=== PATIENT | male | born 1935 | race Caucasian/White ===

== ENCOUNTER 2016-09-29 10:51 | Inpatient (IN) | payer MEDICARE, MEDICAID ==
[~2016-09-29] VITALS: Ht 175.3 cm; Wt 68.0 kg
[2016-09-29] MEDS ORDERED: Ipratropium 0.02% Inh Soln 2.5ml UD HHN ONE (11:00)
[2016-09-29] MEDS ORDERED: Morphine Sulfate 2mg/ml Inj IVP ONE (11:00)
[2016-09-29] MEDS ORDERED: Solu-MEDROL 125mg Inj IVP ONE (11:00)
[2016-09-29] MEDS: Albuterol ud Inhalation HHN SCH ×3 (11:06→19:30)
[2016-09-29] MEDS ORDERED: Pantoprazole Inj IVP ONE ×2 (11:15→13:30)
[2016-09-29 11:24] VITALS: BP 144/79
--- NOTE | 2016-09-29 11:43 | Diagnostic Imaging Report ---
Indication: Chest pain Technique: XRAY CHEST 1 V Comparison: None Findings: Cardiac silhouette is prominent. There is a left chest pacemaker. There is no consolidation or pleural effusion. Osseous structures demonstrate no acute abnormality. Impression: No acute cardiopulmonary disease. Cardiomegaly and left chest pacemaker.
--- NOTE | 2016-09-29 11:44 | Diagnostic Imaging Report ---
Indication: Vomiting Technique: Supine views of the abdomen Comparison: None Findings: Bowel gas pattern is nonobstructive and nonspecific. Compression deformities are suggested at L1 and L3. There is osteopenia. Impression: Nonobstructive and nonspecific bowel gas pattern. Apparent compression deformities of L1 and L3. Clinical correlation recommended.
[2016-09-29] MEDS ORDERED: Norco 5mg/325mg tab ORAL ONE (12:15)
[2016-09-29] MEDS ORDERED: PredniSONE 20mg tab ORAL ONE (12:15)
[2016-09-29] MEDS ORDERED: Lidocaine 1% MPF 10mg/ml 5ml INJ ONE (13:00)
--- NOTE | 2016-09-29 13:20 | Emergency Room Report ---
History of Present Illness General Chief Complaint: Pain Source: Patient (Jatin Vera M.D.) Present Illness HPI Patient presents with several days of R jaw and throat pain. He has been unable to eat for 6 days. The pain is severe 10/10 constant and worse with he tries to bite or swallow. He has fullness in this throat and neck. He states he was at a hospital recently and had a CT scan. (He thinks it was [facility].) He believes this is cancer. He also has been vomiting. There is no pain in his abdomen or chest. He also has been coughing thick sputum. No chills or fever. form builder picked him up from the streets (BLS). Prior alcohol abuse but denies recent. + smoker. No trauma, headaches, rashes. He denies SI or HI. (Jatin Vera M.D.) Allergies: Coded Allergies: No Known Allergies (Unverified , 09/29/16) Patient History Past Medical History: see triage record Past Surgical History: pacemaker Social History: Reports: alcohol use - prior, smoking, Denies: drug use Social History Narrative born in [place], dealt with furs - on streets now Reviewed Nursing Documentation: PMH: Agreed, PSxH: Agreed (Jatin Vera M.D.) Nursing Documentation-PMH Past Medical History: No History, Except For Hx Cardiac Problems: Yes Hx Hypertension: Yes Hx Pacemaker: Yes Hx COPD: Yes Hx Cancer: Yes (Jatin Vera M.D.) Review of Systems All Other Systems: negative except mentioned in HPI (Jatin Vera M.D.) Physical Exam Vital Signs Date Time Temp Pulse Resp B/P Pulse Ox O2 Delivery O2 Flow Rate FiO2 09/29/16 10:39 97.0 102 18 140/56 100 Room Air Sp02 EP Interpretation: reviewed, normal General Appearance: GCS 15, other - dishevelled, vomiting and with phlegm Head: normocephalic, atraumatic Eyes: bilateral eye PERRL, bilateral eye normal inspection ENT: moist mucus membranes, tonsillar swelling - R Neck: supple, other - fullness and tenderness R angle of jaw with fullness of pharynx Respiratory: wheezing, expiration, inspiration, other - pacemaker Cardiovascular #1: regular rate, rhythm Cardiovascular #2: 2+ carotid (R), 2+ carotid (L) Gastrointestinal: normal inspection, normal bowel sounds, non tender, no mass, non-distended Rectal: heme positive stool - brown Genitourinary: normal inspection Musculoskeletal: other - deformity of R hand Neurologic: alert, oriented x3, grossly normal Psychiatric: other - occasionally argumentative Skin: cyanosis - extemities - no central cyanosis (Jatin Vera M.D.) Procedures Central Line Central Line : Consent: Verbal Central Line Lumen: triple Maximal Sterile Barrier Tech: yes cap, yes mask, yes sterile gown, yes sterile gloves, yes large sterile sheet, yes hand hygiene, yes chlorhexidine prep Central Line Postion: femoral (R) Anesthesia: Lidocaine Central Line Post Position: sutured, good blood return Attempts: One Patient Tolerated: Well Complications: None Progress Blood drawn for lab = 35 cc. EBL before = 4 ml. (Jatin Vera M.D.) Medical Decision Making Diagnostic Impression: Primary Impression: GI bleed Qualified Codes: K92.2 - Gastrointestinal hemorrhage, unspecified Additional Impressions: Pharyngeal mass COPD exacerbation Elevated lactic acid level ER Course Patient presents with right neck pain and vomiting. He claims that there is a mass in his neck. Differential includes neck abscess, cancer, peritonsillar abscess, viral syndrome, gastroenteritis, GI bleed, acute myocardial infarction , COPD exacerbation, pneumonia amongst others. The patient's not been eating for several days and appears ill. Difficulty being able to convince him to get evaluation done here. EKG, chest x-ray, abdominal films and lab were ordered. Lab was delayed because a central line needed to be started by me to draw blood. Stool is brown and guaiac-positive. Labs are significant for elevated white count and elevated lactate. Chest x- ray shows COPD, abdominal films are not significant. H&H are stable. Saline 30 ml/kg bolus was started and cefepime, vancomycin and Flagyl were ordered. The patient also received analgesia. His breathing was much better after breathing treatments and prednisone by mouth. Patient was given Protonix. [facility] was contacted. The patient only had scheduled outpatient appointments however did not have evaluation with CT scan that he had claimed to. A CT scan of his neck was ordered. [facility] was contacted it's an additional steps were taken for possible transfer the patient for ENT. Presented to Dr. Aggarwal. Awaiting CT of neck reading. Signed out to Dr. De. Laboratory Tests Test 09/29/16 13:14 09/29/16 13:50 White Blood Count 14.0 K/UL (4.8-10.8) H Red Blood Count 4.34 M/UL (4.70-6.10) L Hemoglobin 13.7 G/DL (14.2-18.0) L Hematocrit 42.1 % (42.0-52.0) Mean Corpuscular Volume 97 FL (80-99) Mean Corpuscular Hemoglobin 31.5 PG (27.0-31.0) H Mean Corpuscular Hemoglobin Concent 32.5 G/DL (32.0-36.0) Red Cell Distribution Width 12.4 % (11.6-14.8) Platelet Count 57 K/UL (150-450) L Mean Platelet Volume 7.9 FL (6.5-10.1) Neutrophils (%) (Auto) % (45.0-75.0) Lymphocytes (%) (Auto) % (20.0-45.0) Monocytes (%) (Auto) % (1.0-10.0) Eosinophils (%) (Auto) % (0.0-3.0) Basophils (%) (Auto) % (0.0-2.0) Differential Total Cells Counted 100 Neutrophils % (Manual) 37 % (45-75) L Lymphocytes % (Manual) 50 % (20-45) H Monocytes % (Manual) 9 % (1-10) Eosinophils % (Manual) 2 % (0-3) Basophils % (Manual) 2 % (0-2) Band Neutrophils 0 % (0-8) Platelet Estimate Decreased L Platelet Morphology Normal Red Blood Cell Morphology Normal Prothrombin Time 10.0 SEC (9.30-11.50) Prothrombin Time INR 1.0 (0.9-1.1) PTT 22 SEC (23-33) L Sodium Level 136 mEQ/L (135-145) Potassium Level 4.3 mEQ/L (3.4-4.9) Chloride Level 91 mEQ/L (98-107) L Carbon Dioxide Level 12 mEQ/L (20-30) L Anion Gap 33 (5-15) H Blood Urea Nitrogen 27 mg/dL (7-23) H Creatinine 1.1 mg/dL (0.7-1.2) Estimate Glomerular Filtration Rate mL/min (>60) Glucose Level 175 mg/dL (74-106) H Lactic Acid Level 8.70 mmol/L (0.66-2.22) H Calcium Level 8.5 mg/dL (8.6-10.2) L Total Bilirubin 0.3 mg/dL (0.0-1.2) Aspartate Amino Transferase (AST) 37 U/L (5-40) Alanine Aminotransferase (ALT) 25 U/L (3-41) Alkaline Phosphatase 75 U/L (40-129) Total Creatine Kinase 707 U/L (38-174) H Troponin I < 0.30 ng/mL (<=0.30) Pro-B-Type Natriuretic Peptide 1300 pg/mL (0-450) H Total Protein 6.6 g/dL (6.6-8.7) Albumin 4.0 g/dL (3.5-5.2) Globulin 2.6 g/dL Albumin/Globulin Ratio 1.5 (1.0-2.7) Urine Color Pale yellow Urine Appearance Clear Urine pH 5 (4.5-8.0) Urine Specific [place] 1.025 (1.005-1.035) Urine Protein 1+ (NEGATIVE) H Urine Glucose (UA) Negative (NEGATIVE) Urine Ketones 3+ (NEGATIVE) H Urine Occult Blood 2+ (NEGATIVE) H Urine Nitrite Negative (NEGATIVE) Urine Bilirubin Negative (NEGATIVE) Urine Urobilinogen Normal MG/DL (0.0-1.0) Urine Leukocyte Esterase Negative (NEGATIVE) Urine RBC 2-4 /HPF (0 - 0) H Urine WBC 0-2 /HPF (0 - 0) Urine Squamous Epithelial Cells Occasional /LPF Urine Bacteria Occasional /HPF (NONE) Urine Hyaline Casts 2-4 /LPF (NONE) H Urine Fine Granular Casts 0-2 /LPF (NONE) H Urine Mucus Few /LPF (NONE/OCC) H Urine Opiates Screen Negative (NEGATIVE) Urine Barbiturates Screen Negative (NEGATIVE) Phencyclidine (PCP) Screen Negative (NEGATIVE) Urine Amphetamines Screen Negative (NEGATIVE) Urine Benzodiazepines Screen Negative (NEGATIVE) Urine Cocaine Screen Negative (NEGATIVE) Urine Marijuana (THC) Screen Negative (NEGATIVE) (Jatin Vera M.D.) ER Course CT neck does NOT show abscess or other acute pathology Patient stable for admission to floor. (COLLEEN DE M.D.) EKG Diagnostic Results Rate: normal Rhythm: NSR ST Segments: no acute changes - LBBB (Jatin Vera M.D.) Rhythm Strip Diag. Results EP Interpretation: yes Rhythm: NSR, no PVC's, no ectopy (Jatin Vera M.D.) Chest X-Ray Diagnostic Results EP Interpretation: Yes Findings: no acute cardiopulmonary disease Number of Views: 1 (Jatin Vera M.D.) Other X-Ray Diagnostic Results Other X-Ray Diagnostic Results : X-Ray Ordered: abd EP Interpretation: Yes Findings: other - NSBGP, no masses, no SBO Number of Views: 2 (Jatin Vera M.D.) CT/MRI/US Diagnostic Results CT/MRI/US Diagnostic Results : Imaging Test Ordered: neck with contrast Impression pending (Jatin Vera M.D.) Last Vital Signs Date Time Temp Pulse Resp B/P Pulse Ox O2 Delivery O2 Flow Rate FiO2 09/30/16 10:02 64 20 Room Air 09/30/16 10:02 98 2.0 28 09/30/16 08:00 97.3 122/69 Status: improved (Jatin Vera M.D.) Disposition: ADMITTED INPATIENT Condition: Serious Referrals: NOT CHOSEN IPA/,REFERRING (PCP) Jatin Vera M.D. September 29, 2016 13:20 COLLEEN DE M.D. September 29, 2016 16:47
[2016-09-29] MEDS ORDERED: Morphine Sulfate 4mg/ml Inj IVP ONE ×2 (13:30→14:30)
[2016-09-29 13:41] LABS: MEAN CORPUSCULAR HEMOGLOBIN 31.5 PG (27.0-31.0); MEAN CORPUSCULAR HGB CONC 32.5 G/DL (32.0-36.0); MEAN CORPUSCULAR VOLUME 97 FL (80-99); MEAN PLATELET VOLUME 7.9 FL (6.5-10.1); PLATELET COUNT 57 K/UL (150-450); RED BLOOD COUNT 4.34 M/UL (4.70-6.10); RED CELL DISTRIBUTION WIDTH 12.4 % (11.6-14.8)
[2016-09-29 14:00] LABS: BAND NEUTROPHILS % (MANUAL) 0 % (0-8); BASOPHILS % (MANUAL) 2 % (0-2); EOSINOPHILS % (MANUAL) 2 % (0-3); LYMPHOCYTES % (MANUAL) 50 % (20-45); NEUTROPHILS % (MANUAL) 37 % (45-75); PLATELET ESTIMATE DECREASED; TOTAL CELLS COUNTED 100
[2016-09-29 14:01] LABS: ALANINE AMINOTRANSFERASE 25 U/L (3-41); ALBUMIN/GLOBULIN RATIO 1.5 (1.0-2.7); ANION GAP 33 (5-15); ASPARTATE AMINO TRANSFERASE 37 U/L (5-40); CALCIUM 8.5 mg/dL (8.6-10.2); CARBON DIOXIDE 12 mEQ/L (20-30); CHLORIDE 91 mEQ/L (98-107); CREATININE 1.1 mg/dL (0.7-1.2); HEMOLYSIS 7; PLATELET MORPHOLOGY NORMAL; POTASSIUM 4.3 mEQ/L (3.4-4.9); SODIUM 136 mEQ/L (135-145); TOTAL PROTEIN 6.6 g/dL (6.6-8.7); TROPONIN I < 0.30 ng/mL (<=0.30)
[2016-09-29 14:04] LABS: APPEARANCE,URINE CLEAR; KETONES,URINE 3+ (NEGATIVE); LEUKOCYTE ESTERASE ,URINE NEGATIVE (NEGATIVE); NITRITE,URINE NEGATIVE (NEGATIVE); PH,URINE 5 (4.5-8.0); PROTEIN,URINE 1+ (NEGATIVE); UROBILINOGEN,URINE NORMAL MG/DL (0.0-1.0)
[2016-09-29 14:06] LABS: REFLEX LACTIC ACID YES OR NO YES
[2016-09-29] MEDS ORDERED: Vancomycin 1 GM in D5W 275 ML IVPB ONE (14:15)
[2016-09-29] MEDS ORDERED: Cefepime HCl 1 GM in D5W 55 ML IVPB ONE (14:15)
[2016-09-29] MEDS ORDERED: metroNIDAZOLE 500mg 100 ML IVPB ONE (14:15)
[2016-09-29 14:16] LABS: BACTERIA,URINE OCCASIONAL /HPF; SQUAMOUS EPITHELIAL CELL,UR OCCASIONAL /LPF (NONE/OCC); WBC,URINE 0-2 /HPF (0 - 0)
[2016-09-29] MEDS ORDERED: Cefepime 1gm vial ONE (14:16)
[2016-09-29 14:17] LABS: FINE GRANULAR CASTS,URINE 0-2 /LPF; MUCUS,URINE FEW /LPF (NONE/OCC)
[2016-09-29] MEDS ORDERED: Hydromorphone 0.5mg/0.5ml inj IVP ONE (15:30)
[2016-09-29] MEDS ORDERED: Vancomycin 1gm inj IVPB ONE (16:27)
[2016-09-29] MEDS ORDERED: UNOBMED (17:03)
[2016-09-29 17:08] VITALS: BP 138/76
[2016-09-29 18:00] VITALS: BP 146/62
[2016-09-29] MEDS ORDERED: ASPIRIN-LOW81 MG ORAL (18:35)
[2016-09-29] MEDS ORDERED: Acetaminophen 500mg (ES) tab ORAL PRN (19:00)
[2016-09-29] MEDS ORDERED: Miralax 17gm pkt ORAL PRN (19:00)
[2016-09-29] MEDS ORDERED: Zolpidem 5mg tab ORAL PRN (19:45)
[2016-09-29 20:00] VITALS: BP 150/71
[2016-09-29] MEDS: Ipratropium 0.02% Inh Soln 2.5ml UD HHN PRN (20:30)
[2016-09-29] MEDS: 1/2NS w/KCl 20mEq 1000ml 1,000 ML IV SCH (20:59)
[2016-09-29] MEDS: Norco 5mg/325mg tab ORAL PRN (21:00)
[2016-09-29] MEDS ORDERED: Heparin 5000 units/ml inj SUBQ SCH (21:00)
[2016-09-30] VITALS: BP 128/62
[2016-09-30] MEDS: Norco 5mg/325mg tab ORAL PRN (03:37)
[2016-09-30 04:00] VITALS: BP 128/65
[2016-09-30 05:01] LABS: MEAN CORPUSCULAR HEMOGLOBIN 32.2 PG (27.0-31.0); MEAN CORPUSCULAR HGB CONC 34.2 G/DL (32.0-36.0); MEAN CORPUSCULAR VOLUME 94 FL (80-99); MEAN PLATELET VOLUME 6.6 FL (6.5-10.1); PLATELET COUNT 254 K/UL (150-450); WHITE BLOOD COUNT 20.3 K/UL (4.8-10.8)
[2016-09-30 05:23] LABS: ANION GAP 19 (5-15); CALCIUM 7.2 mg/dL (8.6-10.2); CARBON DIOXIDE 19 mEQ/L (20-30); CHLORIDE 97 mEQ/L (98-107); HEMOLYSIS 9; MAGNESIUM 1.6 mg/dL (1.7-2.5); POTASSIUM 4.8 mEQ/L (3.4-4.9); SODIUM 135 mEQ/L (135-145)
[2016-09-30 08:00] VITALS: BP 122/69
[2016-09-30 08:57] LABS: BAND NEUTROPHILS % (MANUAL) 0 % (0-8); BASOPHILS % (MANUAL) 0 % (0-2); EOSINOPHILS % (MANUAL) 0 % (0-3); LYMPHOCYTES % (MANUAL) 4 % (20-45); NEUTROPHILS % (MANUAL) 86 % (45-75); PLATELET ESTIMATE ADEQUATE; PLATELET MORPHOLOGY NORMAL; TOTAL CELLS COUNTED 100
[2016-09-30] MEDS ORDERED: Tubing IV Secondary IV ONE (10:01)
[2016-09-30] MEDS ORDERED: NS 275ml ONE (10:01)
--- NOTE | 2016-09-30 10:18 | Diagnostic Imaging Report ---
Indication: Neck pain. Technique: Continuous helical imaging of the neck was obtained transaxially from the skull base to the upper thoracic spine during intravenous administration of nonionic contrast. 2-D coronal and sagittal reformatted images were obtained. Total Dose length Product (DLP): [address] Dose Index Volume (CTDIvol): 20 mGy Comparison: None Findings: No adenopathy or abnormal fluid collections are demonstrated within the neck. The supraglottic structures, larynx and subglottic airway appear clear. Glands are unremarkable in appearance. There are scattered arterial plaques.. Minimal left carotid bifurcation calcific plaque noted. The study was not performed as a CTA neck but there is relatively good opacification of the extracranial carotid arteries which show no significant stenosis below the skull base. There is a pacemaker present. The lung apices appear clear. Some degenerative changes of the cervical spine are noted with narrowing of some of the intervertebral discs and hypertrophic spurring. Impression: No acute findings. No abscess identified. Mild atherosclerotic gastric disease Cervical spondylosis The CT scanner at [facility] is accredited by the [employer] and the scans are performed using dose optimization techniques as appropriate to a performed exam including Automatic Exposure control.
[2016-09-30] MEDS: 1/2NS w/KCl 20mEq 1000ml 1,000 ML IV SCH ×2 (10:24→22:57)
--- NOTE | 2016-09-30 11:22 | Infectious Diseases Prog Note ---
Assessment/Plan Assessment/Plan Full consult to follow: A) 1) leukocytosis, pharyngitis, painful swallowing, ? sepsis, ? etiology, ? diarrhea per patient but abdominal exam is benign 2) ct neck is negative or abscess, chest x-ray negative, ua le negative 3) pmh noted P) 1) vancomycin and zosyn 2) check blood cultures, check labs, check f/u chest x-ray 3) throat culture, check c.diff. if has diarrhea 4) consider ENT evaluation 5) may need further imaging 6) thank you Subjective Allergies: Coded Allergies: No Known Allergies (Unverified , 09/29/16) Objective Vital Signs Last 24 Hour Vital Signs Date Time Temp Pulse Resp B/P Pulse Ox O2 Delivery O2 Flow Rate FiO2 09/30/16 10:02 64 20 Room Air 09/30/16 10:02 98 Nasal Cannula 2.0 28 09/30/16 08:00 97.3 20 122/69 97 Nasal Cannula 2.0 09/30/16 08:00 60 09/30/16 04:00 97.4 78 20 128/65 98 Nasal Cannula 2.0 28 09/30/16 04:00 115 09/30/16 00:00 97.0 62 22 128/62 97 Nasal Cannula 2.0 28 09/30/16 00:00 70 09/29/16 20:35 60 22 97 Nasal Cannula 2.0 28 09/29/16 20:34 28 09/29/16 20:33 60 22 Nasal Cannula 2.0 28 09/29/16 20:29 60 22 97 Nasal Cannula 2.0 28 09/29/16 20:00 97.0 62 20 150/71 100 Nasal Cannula 1.0 09/29/16 20:00 60 09/29/16 18:00 97.0 60 16 146/62 100 Nasal Cannula 1.0 09/29/16 17:11 97.0 89 14 138/76 94 Nasal Cannula 1.0 09/29/16 17:08 97.0 89 14 138/76 94 Nasal Cannula 1.0 09/29/16 17:04 97.0 09/29/16 16:29 97.0 09/29/16 12:49 97.0 09/29/16 11:33 61 24 95 Room Air 09/29/16 11:24 97.0 109 27 144/79 90 Simple Mask Height (Feet): 5 Height (Inches): 9.00 Weight (Pounds): 150 Laboratory Tests Test 09/29/16 13:14 09/29/16 13:50 09/30/16 04:30 White Blood Count 14.0 K/UL (4.8-10.8) H 20.3 K/UL (4.8-10.8) H Red Blood Count 4.34 M/UL (4.70-6.10) L 3.90 M/UL (4.70-6.10) L Hemoglobin 13.7 G/DL (14.2-18.0) L 12.5 G/DL (14.2-18.0) L Hematocrit 42.1 % (42.0-52.0) 36.7 % (42.0-52.0) L Mean Corpuscular Volume 97 FL (80-99) 94 FL (80-99) Mean Corpuscular Hemoglobin 31.5 PG (27.0-31.0) H 32.2 PG (27.0-31.0) H Mean Corpuscular Hemoglobin Concent 32.5 G/DL (32.0-36.0) 34.2 G/DL (32.0-36.0) Red Cell Distribution Width 12.4 % (11.6-14.8) 12.0 % (11.6-14.8) Platelet Count 57 K/UL (150-450) L 254 K/UL (150-450) # Mean Platelet Volume 7.9 FL (6.5-10.1) 6.6 FL (6.5-10.1) Neutrophils (%) (Auto) % (45.0-75.0) % (45.0-75.0) Lymphocytes (%) (Auto) % (20.0-45.0) % (20.0-45.0) Monocytes (%) (Auto) % (1.0-10.0) % (1.0-10.0) Eosinophils (%) (Auto) % (0.0-3.0) % (0.0-3.0) Basophils (%) (Auto) % (0.0-2.0) % (0.0-2.0) Differential Total Cells Counted 100 100 Neutrophils % (Manual) 37 % (45-75) L 86 % (45-75) H Lymphocytes % (Manual) 50 % (20-45) H 4 % (20-45) L Monocytes % (Manual) 9 % (1-10) 10 % (1-10) Eosinophils % (Manual) 2 % (0-3) 0 % (0-3) Basophils % (Manual) 2 % (0-2) 0 % (0-2) Band Neutrophils 0 % (0-8) 0 % (0-8) Platelet Estimate Decreased L Adequate Platelet Morphology Normal Normal Red Blood Cell Morphology Normal Normal Prothrombin Time 10.0 SEC (9.30-11.50) Prothromb Time International Ratio 1.0 (0.9-1.1) Activated Partial Thromboplast Time 22 SEC (23-33) L Sodium Level 136 mEQ/L (135-145) 135 mEQ/L (135-145) Potassium Level 4.3 mEQ/L (3.4-4.9) 4.8 mEQ/L (3.4-4.9) Chloride Level 91 mEQ/L (98-107) L 97 mEQ/L (98-107) L Carbon Dioxide Level 12 mEQ/L (20-30) L 19 mEQ/L (20-30) L Anion Gap 33 (5-15) H 19 (5-15) H Blood Urea Nitrogen 27 mg/dL (7-23) H 19 mg/dL (7-23) Creatinine 1.1 mg/dL (0.7-1.2) 1.0 mg/dL (0.7-1.2) Estimat Glomerular Filtration Rate mL/min (>60) mL/min (>60) Glucose Level 175 mg/dL (74-106) H 97 mg/dL (74-106) Lactic Acid Level 8.70 mmol/L (0.66-2.22) H Calcium Level 8.5 mg/dL (8.6-10.2) L 7.2 mg/dL (8.6-10.2) L Total Bilirubin 0.3 mg/dL (0.0-1.2) Aspartate Amino Transf (AST/SGOT) 37 U/L (5-40) Alanine Aminotransferase (ALT/SGPT) 25 U/L (3-41) Alkaline Phosphatase 75 U/L (40-129) Total Creatine Kinase 707 U/L (38-174) H Troponin I < 0.30 ng/mL (<=0.30) Pro-B-Type Natriuretic Peptide 1300 pg/mL (0-450) H Total Protein 6.6 g/dL (6.6-8.7) Albumin 4.0 g/dL (3.5-5.2) Globulin 2.6 g/dL Albumin/Globulin Ratio 1.5 (1.0-2.7) Urine Color Pale yellow Urine Appearance Clear Urine pH 5 (4.5-8.0) Urine Specific [place] 1.025 (1.005-1.035) Urine Protein 1+ (NEGATIVE) H Urine Glucose (UA) Negative (NEGATIVE) Urine Ketones 3+ (NEGATIVE) H Urine Occult Blood 2+ (NEGATIVE) H Urine Nitrite Negative (NEGATIVE) Urine Bilirubin Negative (NEGATIVE) Urine Urobilinogen Normal MG/DL (0.0-1.0) Urine Leukocyte Esterase Negative (NEGATIVE) Urine RBC 2-4 /HPF (0 - 0) H Urine WBC 0-2 /HPF (0 - 0) Urine Squamous Epithelial Cells Occasional /LPF Urine Bacteria Occasional /HPF (NONE) Urine Hyaline Casts 2-4 /LPF (NONE) H Urine Fine Granular Casts 0-2 /LPF (NONE) H Urine Mucus Few /LPF (NONE/OCC) H Urine Opiates Screen Negative (NEGATIVE) Urine Barbiturates Screen Negative (NEGATIVE) Phencyclidine (PCP) Screen Negative (NEGATIVE) Urine Amphetamines Screen Negative (NEGATIVE) Urine Benzodiazepines Screen Negative (NEGATIVE) Urine Cocaine Screen Negative (NEGATIVE) Urine Marijuana (THC) Screen Negative (NEGATIVE) Magnesium Level 1.6 mg/dL (1.7-2.5) L Current Medications Medications (Trade) Dose Ordered Sig/Indira Route PRN Reason Start Time Stop Time Status Last Admin Dose Admin Acetaminophen (Tylenol) 500 mg Q6H PRN ORAL Mild Pain/Temp > 100.5 09/29/16 19:00 10/29/16 18:59 Acetaminophen/ Hydrocodone Bitart ([place] 5/325) 1 tab Q6H PRN ORAL Pain 4 - 10 09/29/16 19:00 10/06/16 18:59 09/30/16 03:37 Dextrose (Dextrose 50%) STAT PRN IV Hypoglycemia 09/29/16 19:00 10/29/16 18:59 Ipratropium [place] (Atrovent) 500 mcg Q6H PRN HHN Shortness of Breath 09/29/16 19:45 10/04/16 19:44 09/29/16 20:30 Levofloxacin (Levaquin) 100 ml @ 100 mls/hr Q24H IVPB 09/29/16 21:00 10/06/16 20:59 09/29/16 21:02 Olanzapine 10 mg 10 mg DAILY ORAL 09/30/16 09:00 10/30/16 08:59 09/30/16 08:11 Ondansetron HCl (Zofran) 4 mg Q6H PRN IVP Nausea & Vomiting 09/29/16 19:00 10/29/16 18:59 09/29/16 20:59 Pantoprazole (Protonix) 40 mg DAILY ORAL 09/30/16 09:00 10/30/16 08:59 09/30/16 08:11 Polyethylene Glycol (Miralax) 17 gm DAILYPRN PRN ORAL Constipation 09/29/16 19:00 10/29/16 18:59 Sodium (0.45%NS w/KCl 20mEq 1000ml) 1,000 ml @ 75 mls/hr [id number] IV 09/29/16 20:30 10/29/16 20:29 09/30/16 10:24 Zolpidem Tartrate 10 mg 10 mg HSPRN PRN ORAL Insomnia 09/29/16 19:45 10/29/16 19:44 LEEROY SOTO September 30, 2016 11:22
[2016-09-30 12:00] VITALS: BP 133/77
[2016-09-30] MEDS: cefTRIAXone 1 GM in D5W 50 ML IVPB SCH (13:08)
[2016-09-30] MEDS: metroNIDAZOLE 500mg 100 ML IVPB SCH ×2 (14:07→22:20)
[2016-09-30 16:00] VITALS: BP 128/71
--- NOTE | 2016-09-30 16:49 | History and Physical Report ---
DATE OF ADMISSION: 09/29/2016 CHIEF COMPLAINT: Right neck pain. HISTORY OF PRESENT ILLNESS: This is an 80-year-old, a very confused male, who came to the emergency department. The patient is hard of hearing and very confused. He does not know his address and does not know anything about his medical history. The patient appeared at [facility]. I was called to admit this patient. PAST MEDICAL HISTORY: 1. Chronic obstructive pulmonary disease. 2. Status post pacemaker. MEDICATIONS: Apparently, the patient is on baby aspirin. Other medications are unknown. ALLERGIES: No known drug allergies. SOCIAL HISTORY: The patient is confused and unable to give any information. FAMILY HISTORY: The patient is confused and unable to give any information. REVIEW OF SYSTEMS: The patient is confused and unable to give any information. PHYSICAL EXAMINATION: GENERAL: This is an elderly male, who is in no acute distress. VITAL SIGNS: Blood pressure 122/62, pulse 70 and regular, respirations 20, and temperature 98 degrees. HEENT: The head is normocephalic and atraumatic. Pupils are equal, round, and reactive to light and accommodation consensually. NECK: Supple. Trachea midline. There was no lymphadenopathy or thyromegaly. LUNGS: Bilateral wheezes and rhonchi. HEART: Regular rate and rhythm without rubs, murmurs, or gallops. ABDOMEN: Soft and nontender. Bowel sounds were active. EXTREMITIES: No clubbing, cyanosis, or edema. NEUROLOGICAL: He is alert, but very confused and hard of hearing. LABORATORY AND ANCILLARY DATA: CBC, white count on admission 14,000, today 20,300 and hemoglobin on admission 13.7, today 12.5. Serum chemistry, BUN on admission 27, today 17 and magnesium today 1.6. ProBNP 1300. Tox screen negative. PTT 22. Urinalysis, 2+ occult blood. Sediment otherwise negative. IMAGING STUDIES: Chest x-ray, cardiomegaly and pacemaker. Abdominal x-ray, compression deformities at L1 and L3. EKG, wide QRS, rightward axis deviation. ASSESSMENT: 1. Throat pain, nonspecific. 2. Leukocytosis, etiology unclear. 3. Chronic obstructive pulmonary disease exacerbation. 4. Status post pacemaker. PLAN: 1. Empiric intravenous antibiotics. 2. Obtain CT scan of the neck, rule out mass. 3. Treatment for chronic obstructive pulmonary disease exacerbation. 4. Obtain database . Chato Aggarwal M.D. DR: HARRIS JOB#: [id number] CC:
--- NOTE | 2016-09-30 18:37 | Cardiology Report ---
APPROVED REPORT EXAM: Two-dimensional and M-mode echocardiogram with Doppler and color Doppler. INDICATION Cardiomyopathy M-Mode DIMENSIONS IVSd0.9 (0.7-1.1cm)Left Atrium (MM)7.4 (1.6-4.0cm) LVDd6.7 (3.5-5.6cm)Aortic Root2.7 (2.0-3.7cm) PWd0.9 (0.7-1.1cm)Aortic Cusp Exc.1.9 (1.5-2.0cm) LVDs4.9 (2.5-4.0cm) PWs1.7 cm Technically difficult study due to poor acoustical windows. Normal left ventricular chamber size, systolic function to extent visualized. Left ventricular ejection fraction estimated to be 55 %. Study quality precludes accurate assessment of regional wall motion. Mild left ventricular hypertrophy by 2-D. Anterior Echo-free space, may be due to pericardial fat or effusion. Severe bi-atrial enlargement. Right ventricular chamber size is within normal limits. Focal aortic valve sclerosis with adequate cusp excursion. Thickened mitral valve leaflets with normal excursion. Mitral annulus and aortic root calcification. Pulmonic valve not well visualized. Normal tricuspid valve structure. IVC dilated at 2.3 cm with slight physiologic collapse suggestive of increased RA pressure. Pacemaker wire present in the right side chambers. A color flow and spectral Doppler study was performed and revealed: Trace aortic regurgitation. Mild to moderate mitral regurgitation. Mitral diastolic velocities suggest reduced left ventricular relaxation c/w mild LV diastolic dysfunction (Grade I). Mild to moderate tricuspid regurgitation. Tricuspid systolic velocities suggests peak right ventricular systolic pressure of 60 mmHg, consistent with severe pulmonary hypertension.
[2016-09-30 20:08] VITALS: BP 141/71
[2016-10-01] MEDS: Ipratropium 0.02% Inh Soln 2.5ml UD HHN PRN
[2016-10-01 00:05] VITALS: BP 155/84
[2016-10-01] MEDS: Norco 5mg/325mg tab ORAL PRN ×2 (00:17→10:27)
[2016-10-01 03:52] VITALS: BP 118/57
[2016-10-01] MEDS: metroNIDAZOLE 500mg 100 ML IVPB SCH ×3 (06:23→22:00)
[2016-10-01 07:48] LABS: BASOPHILS % (AUTO) 0.8 % (0.0-2.0); EOSINOPHILS % (AUTO) 0.8 % (0.0-3.0); LYMPHOCYTES % (AUTO) 14.5 % (20.0-45.0); MEAN CORPUSCULAR HEMOGLOBIN 31.8 PG (27.0-31.0); MEAN CORPUSCULAR HGB CONC 32.9 G/DL (32.0-36.0); MEAN CORPUSCULAR VOLUME 96 FL (80-99); MEAN PLATELET VOLUME 7.1 FL (6.5-10.1); MONOCYTES % (AUTO) 10.2 % (1.0-10.0); NEUTROPHILS % (AUTO) 73.7 % (45.0-75.0); PLATELET COUNT 248 K/UL (150-450); RED BLOOD COUNT 4.14 M/UL (4.70-6.10); RED CELL DISTRIBUTION WIDTH 12.4 % (11.6-14.8); WHITE BLOOD COUNT 12.8 K/UL (4.8-10.8)
[2016-10-01 08:01] VITALS: BP 179/73
[2016-10-01 08:04] LABS: ANION GAP 13 (5-15); CALCIUM 8.2 mg/dL (8.6-10.2); CARBON DIOXIDE 25 mEQ/L (20-30); CHLORIDE 106 mEQ/L (98-107); CREATININE 0.8 mg/dL (0.7-1.2); HEMOLYSIS 4; POTASSIUM 4.1 mEQ/L (3.4-4.9); SODIUM 144 mEQ/L (135-145)
[2016-10-01 08:50] VITALS: BP 136/67
[2016-10-01] MEDS ORDERED: Zolpidem 5mg tab ORAL PRN (09:15)
[2016-10-01] MEDS: Vancomycin 1.5 GM/D5W 325 ML IVPB SCH ×2 (11:11)
--- NOTE | 2016-10-01 11:43 | General Progress Note ---
Assessment/Plan Assessment/Plan COPD Exacerbation - See orders. SW notes reviewed. Needs short-term SNF. Subjective Allergies: Coded Allergies: No Known Allergies (Unverified , 09/29/16) Subjective Still c/o SOB, LBP, Dysuria, sore throat. CV RR Lungs increased EXP Abd SNT BS + E No CCE Objective Last 24 Hour Vital Signs Date Time Temp Pulse Resp B/P Pulse Ox O2 Delivery O2 Flow Rate FiO2 10/01/16 08:50 97.3 61 20 136/67 93 Room Air 10/01/16 08:01 97.0 71 22 179/73 95 Nasal Cannula 2.0 10/01/16 08:00 81 10/01/16 07:40 98 Room Air 21 10/01/16 07:40 Room Air 21 10/01/16 07:40 68 18 Room Air 21 10/01/16 04:00 64 10/01/16 03:52 98.3 60 19 118/57 92 Room Air 10/01/16 00:05 98.5 59 21 155/84 97 Room Air 10/01/16 00:01 64 20 99 Room Air 21 10/01/16 00:00 60 10/01/16 00:00 61 20 98 Room Air 21 09/30/16 20:08 98.7 72 20 141/71 94 Room Air 09/30/16 20:00 60 09/30/16 19:30 70 20 Room Air 21 09/30/16 19:30 98 Room Air 21 09/30/16 19:30 Room Air 21 09/30/16 16:00 97.0 81 20 128/71 95 Nasal Cannula 2.0 09/30/16 16:00 84 09/30/16 12:00 97.7 77 20 133/77 98 Nasal Cannula 2.0 09/30/16 12:00 60 Intake and Output 09/30/16 10/01/16 19:00 07:00 Intake Total 1100 ml 775 ml Output Total 500 ml 940 ml Balance 600 ml -165 ml IV Total 1100 ml 775 ml Output Urine Total 500 ml 940 ml # Voids 5 2 Laboratory Tests 10/01/16 07:20: White Blood Count 12.8H, Red Blood Count 4.14L, Hemoglobin 13.1L, Hematocrit 39.9L, Mean Corpuscular Volume 96, Mean Corpuscular Hemoglobin 31.8H, Mean Corpuscular Hemoglobin Concent 32.9, Red Cell Distribution Width 12.4, Platelet Count 248, Mean Platelet Volume 7.1, Neutrophils (%) (Auto) 73.7, Lymphocytes (% ) (Auto) 14.5L, Monocytes (%) (Auto) 10.2H, Eosinophils (%) (Auto) 0.8, Basophils (%) (Auto) 0.8, Sodium Level 144, Potassium Level 4.1, Chloride Level 106, Carbon Dioxide Level 25, Anion Gap 13, Blood Urea Nitrogen 15, Creatinine 0.8, Estimat Glomerular Filtration Rate , Glucose Level 96, Calcium Level 8.2L Height (Feet): 5 Height (Inches): 9.00 Weight (Pounds): 150 BRENNA STEWART October 01, 2016 11:43
[2016-10-01 12:00] VITALS: BP 146/73
[2016-10-01] MEDS: 1/2NS w/KCl 20mEq 1000ml 1,000 ML IV SCH ×2 (12:30→17:17)
--- NOTE | 2016-10-01 13:35 | Diagnostic Imaging Report ---
Indications: Cough Technique: Portable AP chest Findings: Comparison: Sep 29 2016 Pulmonary inflation has mildly decreased. Cardiac silhouette remains mildly enlarged. Central pulmonary vasculature remains prominent. Peripheral pulmonary vasculature remains within normal limits. No pleural abnormalities detected. Aortic arch calcification and mild elongation, left chest wall pacemaker again noted. IMPRESSION: No evidence of acute cardiopulmonary disease allowing for technical differences described, unchanged Stable chronic changes as described
[2016-10-01] MEDS: cefTRIAXone 1 GM in D5W 50 ML IVPB SCH (13:53)
[2016-10-01 16:05] VITALS: BP 149/73
--- NOTE | 2016-10-01 17:08 | Infectious Diseases Prog Note ---
Assessment/Plan Assessment/Plan Full consult to dictated A) 1) gram + bacteremia - 4/4 bottles, sepsis, leukocytosis, chest x-ray negative, ? pharyngitis, neck pain, ? endocarditis, ? pace-maker infection 2) ct neck negative for abscess 3) pmh noted 4) allergies - negative P) 1) vancomycin, rocephin and flagyl 2) check blood culture identification, labs, f/u bc 3) may need TERESO 4) orders entered and noted 5) may need further imaging Subjective Allergies: Coded Allergies: No Known Allergies (Unverified , 09/29/16) Objective Vital Signs Last 24 Hour Vital Signs Date Time Temp Pulse Resp B/P Pulse Ox O2 Delivery O2 Flow Rate FiO2 10/01/16 16:05 97.0 67 22 149/73 96 Nasal Cannula 2.0 10/01/16 16:00 60 10/01/16 12:00 97.0 64 22 146/73 97 Nasal Cannula 2.0 10/01/16 12:00 63 10/01/16 08:50 97.3 61 20 136/67 93 Room Air 10/01/16 08:01 97.0 71 22 179/73 95 Nasal Cannula 2.0 10/01/16 08:00 81 10/01/16 07:40 98 Room Air 21 10/01/16 07:40 Room Air 21 10/01/16 07:40 68 18 Room Air 21 10/01/16 04:00 64 10/01/16 03:52 98.3 60 19 118/57 92 Room Air 10/01/16 00:05 98.5 59 21 155/84 97 Room Air 10/01/16 00:01 64 20 99 Room Air 21 10/01/16 00:00 60 10/01/16 00:00 61 20 98 Room Air 21 09/30/16 20:08 98.7 72 20 141/71 94 Room Air 09/30/16 20:00 60 09/30/16 19:30 70 20 Room Air 21 09/30/16 19:30 98 Room Air 21 09/30/16 19:30 Room Air 21 Height (Feet): 5 Height (Inches): 9.00 Weight (Pounds): 150 Microbiology Date/Time Source Procedure Growth Status 09/30/16 13:20 Blood Blood Culture - Preliminary Resulted 09/30/16 13:20 Blood Blood Culture - Preliminary Resulted 09/30/16 11:45 Throat Throat Culture - Preliminary NO BETA STREP ISOLATED. Resulted 09/29/16 13:20 Nasal Nares MRSA Culture - Final NO METHICILLIN RESISTANT STAPH AUREUS... Complete 09/29/16 13:20 Rectum VRE Culture - Final NO VANCOMYCIN RESISTANT ENTEROCOCCUS ... Complete Laboratory Tests Test 10/01/16 07:20 White Blood Count 12.8 K/UL (4.8-10.8) H Red Blood Count 4.14 M/UL (4.70-6.10) L Hemoglobin 13.1 G/DL (14.2-18.0) L Hematocrit 39.9 % (42.0-52.0) L Mean Corpuscular Volume 96 FL (80-99) Mean Corpuscular Hemoglobin 31.8 PG (27.0-31.0) H Mean Corpuscular Hemoglobin Concent 32.9 G/DL (32.0-36.0) Red Cell Distribution Width 12.4 % (11.6-14.8) Platelet Count 248 K/UL (150-450) Mean Platelet Volume 7.1 FL (6.5-10.1) Neutrophils (%) (Auto) 73.7 % (45.0-75.0) Lymphocytes (%) (Auto) 14.5 % (20.0-45.0) L Monocytes (%) (Auto) 10.2 % (1.0-10.0) H Eosinophils (%) (Auto) 0.8 % (0.0-3.0) Basophils (%) (Auto) 0.8 % (0.0-2.0) Sodium Level 144 mEQ/L (135-145) Potassium Level 4.1 mEQ/L (3.4-4.9) Chloride Level 106 mEQ/L (98-107) Carbon Dioxide Level 25 mEQ/L (20-30) Anion Gap 13 (5-15) Blood Urea Nitrogen 15 mg/dL (7-23) Creatinine 0.8 mg/dL (0.7-1.2) Estimat Glomerular Filtration Rate mL/min (>60) Glucose Level 96 mg/dL (74-106) Calcium Level 8.2 mg/dL (8.6-10.2) L Current Medications Medications (Trade) Dose Ordered Sig/Indira Route PRN Reason Start Time Stop Time Status Last Admin Dose Admin Acetaminophen (Tylenol) 500 mg Q6H PRN ORAL Mild Pain/Temp > 100.5 09/29/16 19:00 10/29/16 18:59 Acetaminophen/ Hydrocodone Bitart ([place] 5/325) 1 tab Q6H PRN ORAL Pain 4 - 10 09/29/16 19:00 10/06/16 18:59 10/01/16 10:27 Ceftriaxone Sodium/Dextrose (Rocephin/D5W) 50 ml @ 100 mls/hr Q24H IVPB 09/30/16 13:00 10/07/16 12:59 10/01/16 13:53 Dextrose (Dextrose 50%) STAT PRN IV Hypoglycemia 09/29/16 19:00 10/29/16 18:59 Ipratropium [facility] 500 mcg 500 mcg Q6H PRN HHN Shortness of Breath 09/29/16 19:45 10/04/16 19:44 10/01/16 00:00 Metronidazole 100 ml @ 100 mls/hr Q8HR IVPB 09/30/16 14:00 10/07/16 13:59 10/01/16 14:31 Olanzapine (ZyPREXA) 10 mg DAILY ORAL 09/30/16 09:00 10/30/16 08:59 10/01/16 08:27 Ondansetron HCl (Zofran) 4 mg Q6H PRN IVP Nausea & Vomiting 09/29/16 19:00 10/29/16 18:59 09/29/16 20:59 Pantoprazole 40 mg 40 mg DAILY ORAL 09/30/16 09:00 10/30/16 08:59 10/01/16 08:27 Polyethylene Glycol (Miralax) 17 gm DAILYPRN PRN ORAL Constipation 09/29/16 19:00 10/29/16 18:59 10/01/16 12:24 Sodium (0.45%NS w/KCl 20mEq 1000ml) 1,000 ml @ 75 mls/hr [id number] IV 09/29/16 20:30 10/29/16 20:29 09/30/16 22:57 Vancomycin HCl (Vanco rx to dose) 1 ea DAILY PRN MISC Per rx protocol 10/01/16 08:45 6/15/17 08:44 Vancomycin HCl/ Dextrose (Vancomycin/D5W) 325 ml @ 162.5 mls/ hr Q24H IVPB 10/01/16 10:30 10/06/16 10:29 10/01/16 11:11 Zolpidem Tartrate 5 mg 5 mg HSPRN PRN ORAL Insomnia 10/01/16 09:15 10/31/16 09:14 LEEROY SOTO October 01, 2016 17:08
--- NOTE | 2016-10-01 18:13 | Cardiology Progress Note ---
Subjective Subjective [id number] Objective Last 24 Hour Vital Signs Date Time Temp Pulse Resp B/P Pulse Ox O2 Delivery O2 Flow Rate FiO2 10/01/16 16:05 97.0 67 22 149/73 96 Nasal Cannula 2.0 10/01/16 16:00 60 10/01/16 12:00 97.0 64 22 146/73 97 Nasal Cannula 2.0 10/01/16 12:00 63 10/01/16 08:50 97.3 61 20 136/67 93 Room Air 10/01/16 08:01 97.0 71 22 179/73 95 Nasal Cannula 2.0 10/01/16 08:00 81 10/01/16 07:40 98 Room Air 21 10/01/16 07:40 Room Air 21 10/01/16 07:40 68 18 Room Air 21 10/01/16 04:00 64 10/01/16 03:52 98.3 60 19 118/57 92 Room Air 10/01/16 00:05 98.5 59 21 155/84 97 Room Air 10/01/16 00:01 64 20 99 Room Air 21 10/01/16 00:00 60 10/01/16 00:00 61 20 98 Room Air 21 09/30/16 20:08 98.7 72 20 141/71 94 Room Air 09/30/16 20:00 60 09/30/16 19:30 70 20 Room Air 21 09/30/16 19:30 98 Room Air 21 09/30/16 19:30 Room Air 21 Intake and Output 09/30/16 10/01/16 19:00 07:00 Intake Total 1100 ml 775 ml Output Total 500 ml 940 ml Balance 600 ml -165 ml IV Total 1100 ml 775 ml Output Urine Total 500 ml 940 ml # Voids 5 2 Laboratory Tests Test 10/01/16 07:20 White Blood Count 12.8 K/UL (4.8-10.8) H Red Blood Count 4.14 M/UL (4.70-6.10) L Hemoglobin 13.1 G/DL (14.2-18.0) L Hematocrit 39.9 % (42.0-52.0) L Mean Corpuscular Volume 96 FL (80-99) Mean Corpuscular Hemoglobin 31.8 PG (27.0-31.0) H Mean Corpuscular Hemoglobin Concent 32.9 G/DL (32.0-36.0) Red Cell Distribution Width 12.4 % (11.6-14.8) Platelet Count 248 K/UL (150-450) Mean Platelet Volume 7.1 FL (6.5-10.1) Neutrophils (%) (Auto) 73.7 % (45.0-75.0) Lymphocytes (%) (Auto) 14.5 % (20.0-45.0) L Monocytes (%) (Auto) 10.2 % (1.0-10.0) H Eosinophils (%) (Auto) 0.8 % (0.0-3.0) Basophils (%) (Auto) 0.8 % (0.0-2.0) Sodium Level 144 mEQ/L (135-145) Potassium Level 4.1 mEQ/L (3.4-4.9) Chloride Level 106 mEQ/L (98-107) Carbon Dioxide Level 25 mEQ/L (20-30) Anion Gap 13 (5-15) Blood Urea Nitrogen 15 mg/dL (7-23) Creatinine 0.8 mg/dL (0.7-1.2) Estimat Glomerular Filtration Rate mL/min (>60) Glucose Level 96 mg/dL (74-106) Calcium Level 8.2 mg/dL (8.6-10.2) L Microbiology Date/Time Source Procedure Growth Status 09/30/16 13:20 Blood Blood Culture - Preliminary Resulted 09/30/16 13:20 Blood Blood Culture - Preliminary Resulted 09/30/16 11:45 Throat Throat Culture - Preliminary NO BETA STREP ISOLATED. Resulted 09/29/16 13:20 Nasal Nares MRSA Culture - Final NO METHICILLIN RESISTANT STAPH AUREUS... Complete 09/29/16 13:20 Rectum VRE Culture - Final NO VANCOMYCIN RESISTANT ENTEROCOCCUS ... Complete JANET MYERS October 01, 2016 18:13
--- NOTE | 2016-10-01 20:51 | Consultation ---
DATE OF CONSULTATION: 10/01/2016 PULMONARY CONSULTATION CONSULTING PHYSICIAN: Adan Moore M.D. REFERRING PHYSICIAN: Chato Aggarwal M.D. REASON FOR CONSULTATION: Respiratory insufficiency. HISTORY OF PRESENT ILLNESS: This is an 80-year-old male patient who presented to the medical center. The patient was admitted on 09/30/2015. The patient is with confusion and hard of hearing. The patient also with some shortness of breath. The patient does have underlying history of COPD, currently under therapy. I was called to assist and evaluate further and adjust medications and assist with discharge planning. The patient was noted to have leukocytosis and pharyngitis, but fairly negative x-ray eventually subacute in nature. Overall, the patient was noted to have worsening shortness of breath while in the hospital. PAST MEDICAL HISTORY: Notable for COPD, history of pacemaker, now with evidence of leukocytosis, and evidence of acute renal failure. MEDICATIONS: Reviewed. ALLERGIES: Reviewed. SOCIAL HISTORY: The patient is confused, unable to give much in the way of history. He is noted to have baseline dementia. FAMILY HISTORY: Not available. REVIEW OF SYSTEMS: Unobtainable. PHYSICAL EXAMINATION: GENERAL: A well-developed male, in no significant distress, but mildly congested. VITAL SIGNS: Temperature 97, heart rate 64, respiratory rate 23, and blood pressure 147/73, saturations are 97% on 2 liters. HEENT: Fairly negative. Extraocular movements are grossly intact NECK: Supple. No adenopathy. LUNGS: With scattered rhonchi. Moderate breath sounds. CARDIOVASCULAR: S1 and S2. Regular rate and rhythm without murmurs, rubs, or gallops. ABDOMEN: Soft. Nontender. No distention. EXTREMITIES: No cyanosis or clubbing. No significant edema. NEUROLOGICAL: Grossly nonfocal. Weak overall. LABORATORY DATA: Lab data reviewed. White blood cell count 12.8, hemoglobin 13, hematocrit 39, and platelets 248,000. Sodium 144, BUN 15, and creatinine 0.8. Albumin is within normal limits. IMPRESSION: 1. Chronic obstructive pulmonary disease. 2. Shortness of breath. 3. Respiratory insufficiency. 4. Intermittent bronchospasm. 5. Intermittent wheezing. 6. Evidence of dementia with likely acute on chronic encephalopathy. 7. History of pacemaker per history. 8. History of chronic obstructive pulmonary disease per history. 9. Leukocytosis. 10. Pharyngitis. 11. Possible sepsis. RECOMMENDATIONS: 1. Supportive care. 2. meds as outlined. 3. Oxygen therapy as outlined. 4. Hold steroids for now, evaluate if the patient worsens. 5. We will monitor medically and adjust medications and follow imaging as needed. 6. Care discussed and reviewed and then follow clinically. Adan Moore M.D. DR: WILLIS JOB#: [id number] CC: LATOSHA
[2016-10-01] MEDS ORDERED: Tamsulosin 0.4mg cap ORAL SCH (22:00)
[2016-10-02] VITALS: BP 147/77
--- NOTE | 2016-10-02 00:31 | Consultation ---
DATE OF CONSULTATION: 10/01/2016 CARDIOLOGY CONSULTATION: CONSULTING PHYSICIAN: Jocelyn Watters M.D. REFERRING PHYSICIAN: Chato Aggarwal M.D. REASON FOR EVALUATION: Pacemaker and abnormal cardiac rhythm. HISTORY OF PRESENT ILLNESS: The patient presented with right jaw pain and neck pain, but there is no stiffness and there are no lumps, but says that it is extremely painful. He said that he was admitted somewhere else for that pain. He was sure that it is a cancer. It is nonexertional. It is slightly positional. It is not reproducible on palpation, but he has following problems. He had some chills and he has wheezing and cough. PAST MEDICAL HISTORY: Difficult to obtain, but he came agitated. He had pacemaker. He had probably atrial fibrillation. He denies any diabetes or high blood pressure and he probably has alcohol problem, although he denies. PAST SURGICAL HISTORY: Significant only for pacemaker placement. He denies any other surgery. I asked him any procedures done like coronary angiogram and he said that my arteries are plain, but I am not sure. I tried to complying him if he had coronary angiogram, he was not sure. ALLERGIES: His allergies, not reported. MEDICATIONS: He was taking aspirin. HABITS: He said that he smoked heavily, but he quit two months ago and about alcohol, he denied. SOCIAL HISTORY: He lives at home. He is not and does not have any family. REVIEW OF SYSTEMS: No PND. No orthopnea. No syncope. He denies and he is dropping. He does not have any other chest pain. PHYSICAL EXAMINATION: GENERAL: This is an elderly man, who sleeps comfortably. He is arousable. He is cooperative. VITAL SIGNS: Blood pressure is 140/70, heart rate 70, temperature is normal, and oxygen saturation at two liters is 96%. HEENT: PERRLA. EOMI. NECK: Supple. No jugular distention. There is no palpable mass on the right side of his neck. No anything abnormal palpable and his neck is supple. CHEST: His lungs have scattered wheezing. No rales bilaterally with somewhat prolonged expiration. CARDIAC: His heart is regular. PMI is in the sixth intercostal space in the mid axillary line. There is no left ventricular lift. Pacemaker site is intact on the left side. ABDOMEN: Soft and nontender. Good bowel sounds are present. EXTREMITIES: Lower extremities, no edema. He himself appears to be somewhat malnourished and in moderate respiratory distress due to wheezing. NEUROLOGIC: Appears to be unremarkable. LABORATORY AND DIAGNOSTIC DATA: Laboratories are noted and they are remarkable for glucose at 175 and BNP 1600, and troponin normal. He also had elevated white count up to 14 and now it is 12.8. His chest x-ray reveals no presence of infiltrates and he has a dual-chamber pacemaker in the atrium and the ventricle and his lungs are somewhat over expanded, but there is no evidence of infiltrates in his lungs. His EKG shows ventricular pacing with usual rightward axis. His echocardiogram was reviewed and it showed normal ejection fraction. IMPRESSION AND RECOMMENDATION: 1. Chronic obstructive pulmonary disease exacerbation. 2. Neck pain, which is most likely not cardiac, normal troponin, pacemaker in situ and his telemetry rhythm strip shows no clear P-waves and the same is having with EKG. So, we are going to interrogate the pacemaker, looks like he probably is in atrial fibrillation. The question is whether he should be anticoagulated. I discussed with Dr. Aggarwal and he does not appear to be in the heart failure if his troponin is normal. We probably are not going to pursue any additional workup for coronary artery disease at this time because he did not present with clear unstable angina. I will try to get more records, may be [facility] has more information about this patient. Thank you for your consultation. Jocelyn Watters M.D. DR: Marlo JOB#: [id number] CC:
--- NOTE | 2016-10-02 02:51 | Consultation ---
DATE OF CONSULTATION: 10/01/2016 INFECTIOUS DISEASE CONSULTATION ATTENDING PHYSICIAN: Chato Aggarwal M.D. REASON FOR CONSULTATION: Sepsis, gram-positive bacteremia. The patient's chief complaint coming to the hospital is sepsis, GI bleed. HISTORY OF PRESENT ILLNESS: This is an 80-year-old male who comes from [facility], and was noted to have significantly elevated white count and possible sepsis. The patient's workup shows that he has gram-positive blood cultures, 4/4 gram-positive cocci and clusters, identification is pending at this time. Because of the sepsis and gram-positive bacteremia, Infectious Disease consultation requested. The patient is on vancomycin, Rocephin and Flagyl. It is questionable the patient has pharyngitis, however culture for strep is negative and his CT scan of the neck showed no evidence of abscess and no acute findings. The patient is on vancomycin, Rocephin and Flagyl. An 2D echo was done, which did not show any evidence of vegetations, however, it is a limited study based on the report. MAR was noted. Orders were noted. Notes were reviewed. Of note, chest x-ray has been negative and urinalysis also was benign, 0-2 white blood cells, benign for UTI. PAST MEDICAL HISTORY: The patient has a past medical history of COPD, history of pacemaker, history of being confused when he first came in to [place], history of nicotine dependency, history of cardiac disease including pacemaker, history of hypertension, history of cancer looks like also. Please see past medical history in medical order. No history of diabetes. MEDICATIONS: Upon reviewing the MAR, the patient is on the following medications, Zolpidem, vancomycin, metronidazole, Rocephin, Zyprexa, Protonix, Atrovent, MiraLAX, Zofran, IV fluids, he is on hydrocodone, and acetaminophen. Please see medications in medical order. Also medications now reconciled. ALLERGIES: No known drug allergies. SOCIAL HISTORY: Positive for smoking. No alcohol or drug abuse. FAMILY HISTORY: Noncontributory. Negative for exposure of tuberculosis or cancer. REVIEW OF SYSTEMS: Constitutional: The patient has generalized weakness and fatigue. He has some amount of cough. Head And Neck: No obvious head pain. He does have neck pain and possible pharyngitis type symptoms. Cardiac: No chest pain or palpitations. Gastrointestinal: No nausea, vomiting, or diarrhea. Genitourinary: He has no dysuria or frequency. Pulmonary: Mild congestion and cough. Skin: No rash. Neurologic: No seizures. Generalized weakness and fatigue. No fever or chills. Questionable weight loss. He has generalized weakness. No Kinney. He came in with GI bleed. PHYSICAL EXAMINATION: GENERAL: Alert, responsive, in no acute distress, may be some confusion. VITAL SIGNS: Temperature is 97.0 degrees, pulse rate 67, respiratory rate 22, and blood pressure 149/73, saturation is 96% and pulse rate was high as 115 when he first came in. HEAD AND NECK: Oral exam, no thrush. Normocephalic. No facial droop. No neck stiffness. Sinus tenderness. Neck is supple. HEART: Regular. No gallop or murmur. ABDOMEN: Soft. Positive bowel sounds. Nontender. LUNGS: Bilateral rhonchi. No definite rales. SKIN: No rash or dermatitis. MUSCULOSKELETAL: No effusion or contractures. Legs are without cellulitis. PERIPHERAL VASCULAR: No cyanosis or gangrene. RECTAL: Deferred. GENITOURINARY: No Kinney. LINES: Line sites are without phlebitis. NEUROLOGIC: Awake and responsive. LABORATORY AND DIAGNOSTIC DATA: His throat culture is negative. VRE and MRSA screen were negative. Blood cultures 4/4 gram-positive organism cluster, identification is pending, those were the cultures. Creatinine is normal at 0.8. LFTs were noted. White count on admission was 14.0, yesterday 20.3, but he did receive steroids now. Today's white count 12.8, hemoglobin 13.1. Imaging studies, chest x-ray is negative. A 2D echo did not show any evidence of vegetation at least per report. CT scan of the neck showed no abscess. Chest x-ray is negative x2 for pneumonia. ASSESSMENT AND PLAN: 1. The patient has gram-positive bacteremia, 4/4 bottles with sepsis and leukocytosis, questionable etiology, questionable endocarditis, questionable pacemaker infection. CT scan showed no abscess of the neck, questionable pharyngitis. At this time, we will continue on vancomycin, Rocephin and Flagyl. We will check identification, blood cultures recheck surveillance, blood cultures. I would consider TERESO to rule out pacemaker infection and endocarditis. Continue vancomycin, Rocephin, and Flagyl. Follow up blood cultures and labs. Again, consider TERESO especially if the blood cultures are staph aureus. 2. The patient has a history of chronic obstructive pulmonary disease and nicotine dependency. 3. The patient is anemic. 4. Cardiac disease. 5. Pacemaker. 6. Hypertension. 7. Blood pressure control per primary. 8. Chronic obstructive pulmonary disease treatment per primary. 9. History of cancer, I am not clear what type it is. 10. Allergies are negative. 11. Social history is positive for smoking. 12. MAR was noted. 13. Case discussed with RN. 14. Family history is noncontributory. 15. Case discussed with primary consultants. 16. No known allergies. 17. Notes were reviewed. 18. Case discussed with the patient. Cris Mayfield M.D. DR: CORINNE JOB#: [id number] CC:
[2016-10-02 04:00] VITALS: BP 142/80
[2016-10-02 05:23] LABS: EOSINOPHILS % (AUTO) 2.1 % (0.0-3.0); LYMPHOCYTES % (AUTO) 18.2 % (20.0-45.0); MEAN CORPUSCULAR HEMOGLOBIN 32.1 PG (27.0-31.0); MEAN CORPUSCULAR HGB CONC 33.6 G/DL (32.0-36.0); MEAN CORPUSCULAR VOLUME 96 FL (80-99); MEAN PLATELET VOLUME 7.2 FL (6.5-10.1); MONOCYTES % (AUTO) 9.3 % (1.0-10.0); NEUTROPHILS % (AUTO) 69.5 % (45.0-75.0); PLATELET COUNT 220 K/UL (150-450); RED BLOOD COUNT 4.12 M/UL (4.70-6.10); RED CELL DISTRIBUTION WIDTH 12.2 % (11.6-14.8); WHITE BLOOD COUNT 10.8 K/UL (4.8-10.8)
[2016-10-02] MEDS: metroNIDAZOLE 500mg 100 ML IVPB SCH ×3 (05:56→21:56)
[2016-10-02 06:01] LABS: ANION GAP 12 (5-15); CALCIUM 7.9 mg/dL (8.6-10.2); CARBON DIOXIDE 27 mEQ/L (20-30); CHLORIDE 106 mEQ/L (98-107); CREATININE 0.8 mg/dL (0.7-1.2); HEMOLYSIS 6; MAGNESIUM 1.6 mg/dL (1.7-2.5); POTASSIUM 3.6 mEQ/L (3.4-4.9); SODIUM 145 mEQ/L (135-145)
--- NOTE | 2016-10-02 07:29 | Urology Progress Note ---
Assessment/Plan Assessment/Plan urinary retention BPH probable neurogenic bladder microhematuria proteinuria panda indwelling flomax and proscar added voiding trial later consider renal imaging Subjective Allergies: Coded Allergies: No Known Allergies (Unverified , 09/29/16) Subjective feels fair Objective Last 24 Hour Vital Signs Date Time Temp Pulse Resp B/P Pulse Ox O2 Delivery O2 Flow Rate FiO2 10/02/16 04:00 97.9 62 18 142/80 96 10/02/16 04:00 64 10/02/16 00:00 98.1 60 19 147/77 97 10/02/16 00:00 62 10/01/16 20:00 80 10/01/16 19:30 Room Air 21 10/01/16 19:30 98 Room Air 21 10/01/16 19:30 72 20 Room Air 21 10/01/16 16:05 97.0 67 22 149/73 96 Nasal Cannula 2.0 10/01/16 16:00 60 10/01/16 12:00 97.0 64 22 146/73 97 Nasal Cannula 2.0 10/01/16 12:00 63 10/01/16 08:50 97.3 61 20 136/67 93 Room Air 10/01/16 08:01 97.0 71 22 179/73 95 Nasal Cannula 2.0 10/01/16 08:00 81 10/01/16 07:40 98 Room Air 21 10/01/16 07:40 Room Air 21 10/01/16 07:40 68 18 Room Air 21 Intake and Output 10/01/16 10/02/16 19:00 07:00 Intake Total 1390.0 ml 75 ml Output Total 1300 ml 2000 ml Balance 90.0 ml -1925 ml Intake Oral 240 ml IV Total 1150.0 ml 75 ml Output Urine Total 1300 ml 2000 ml # Voids 1 3 Microbiology Date/Time Source Procedure Growth Status 09/30/16 13:20 Blood Blood Culture - Preliminary Staphylococcus Sp Coag Neg Resulted 09/30/16 11:45 Throat Throat Culture - Preliminary NO BETA STREP ISOLATED. Resulted 09/29/16 13:20 Rectum VRE Culture - Final NO VANCOMYCIN RESISTANT ENTEROCOCCUS ... Complete Current Medications Medications (Trade) Dose Ordered Sig/Indira Route PRN Reason Start Time Stop Time Status Last Admin Dose Admin Acetaminophen (Tylenol) 500 mg Q6H PRN ORAL Mild Pain/Temp > 100.5 09/29/16 19:00 10/29/16 18:59 Acetaminophen/ Hydrocodone Bitart ([place] 5/325) 1 tab Q6H PRN ORAL Pain 4 - 10 09/29/16 19:00 10/06/16 18:59 10/01/16 10:27 Ceftriaxone Sodium/Dextrose (Rocephin/D5W) 50 ml @ 100 mls/hr Q24H IVPB 09/30/16 13:00 10/07/16 12:59 10/01/16 13:53 Dextrose (Dextrose 50%) STAT PRN IV Hypoglycemia 09/29/16 19:00 10/29/16 18:59 Finasteride (Proscar) 5 mg DAILY ORAL 10/02/16 09:00 11/01/16 08:59 Ipratropium [place] 500 mcg 500 mcg Q6H PRN HHN Shortness of Breath 09/29/16 19:45 10/04/16 19:44 10/01/16 00:00 Metronidazole 100 ml @ 100 mls/hr Q8HR IVPB 09/30/16 14:00 10/07/16 13:59 10/02/16 05:56 Olanzapine (ZyPREXA) 10 mg DAILY ORAL 09/30/16 09:00 10/30/16 08:59 10/01/16 08:27 Ondansetron HCl (Zofran) 4 mg Q6H PRN IVP Nausea & Vomiting 09/29/16 19:00 10/29/16 18:59 09/29/16 20:59 Pantoprazole 40 mg 40 mg DAILY ORAL 09/30/16 09:00 10/30/16 08:59 10/01/16 08:27 Polyethylene Glycol (Miralax) 17 gm DAILYPRN PRN ORAL Constipation 09/29/16 19:00 10/29/16 18:59 10/01/16 12:24 Sodium (0.45%NS w/KCl 20mEq 1000ml) 1,000 ml @ 75 mls/hr [id number] IV 09/29/16 20:30 10/29/16 20:29 10/01/16 17:17 Tamsulosin HCl (Flomax) 0.4 mg BEDTIME ORAL 10/01/16 22:00 10/31/16 21:59 10/01/16 22:00 Vancomycin HCl (Vanco rx to dose) 1 ea DAILY PRN MISC Per rx protocol 10/01/16 08:45 10/31/16 08:44 Vancomycin HCl/ Dextrose (Vancomycin/D5W) 325 ml @ 162.5 mls/ hr Q24H IVPB 10/01/16 10:30 10/06/16 10:29 10/01/16 11:11 Zolpidem Tartrate 5 mg 5 mg HSPRN PRN ORAL Insomnia 10/01/16 09:15 10/31/16 09:14 Laboratory Tests 10/02/16 04:55: White Blood Count 10.8, Red Blood Count 4.12L, Hemoglobin 13.2L, Hematocrit 39.4L, Mean Corpuscular Volume 96, Mean Corpuscular Hemoglobin 32.1H, Mean Corpuscular Hemoglobin Concent 33.6, Red Cell Distribution Width 12.2, Platelet Count 220, Mean Platelet Volume 7.2, Neutrophils (%) (Auto) 69.5, Lymphocytes (% ) (Auto) 18.2L, Monocytes (%) (Auto) 9.3, Eosinophils (%) (Auto) 2.1, Basophils (%) (Auto) 1.0, Sodium Level 145, Potassium Level 3.6, Chloride Level 106, Carbon Dioxide Level 27, Anion Gap 12, Blood Urea Nitrogen 11, Creatinine 0.8, Estimat Glomerular Filtration Rate , Glucose Level 115H, Lactic Acid Level 1.10 , Calcium Level 7.9L, Magnesium Level 1.6L Height (Feet): 5 Height (Inches): 9.00 Weight (Pounds): 150 Objective exam stable, urine is grossly clear REGINALD ARREAGA October 02, 2016 07:29
[2016-10-02 07:58] VITALS: BP 115/58
--- NOTE | 2016-10-02 09:16 | General Progress Note ---
Assessment/Plan Assessment/Plan COPD Exacerbation - See orders. SW notes reviewed. Needs short-term SNF. Subjective Allergies: Coded Allergies: No Known Allergies (Unverified , 09/29/16) Subjective Still c/o SOB, LBP, Dysuria, sore throat.s/p Traumatic Kinney cath insertion - see notes. Objective Last 24 Hour Vital Signs Date Time Temp Pulse Resp B/P Pulse Ox O2 Delivery O2 Flow Rate FiO2 10/02/16 08:00 60 10/02/16 07:58 97.5 60 20 115/58 95 Nasal Cannula 2.0 10/02/16 04:00 97.9 62 18 142/80 96 10/02/16 04:00 64 10/02/16 00:00 98.1 60 19 147/77 97 10/02/16 00:00 62 10/01/16 20:00 80 10/01/16 19:30 Room Air 21 10/01/16 19:30 98 Room Air 21 10/01/16 19:30 72 20 Room Air 21 10/01/16 16:05 97.0 67 22 149/73 96 Nasal Cannula 2.0 10/01/16 16:00 60 10/01/16 12:00 97.0 64 22 146/73 97 Nasal Cannula 2.0 10/01/16 12:00 63 Intake and Output 10/01/16 10/02/16 19:00 07:00 Intake Total 1390.0 ml 150 ml Output Total 1300 ml 2000 ml Balance 90.0 ml -1850 ml Intake Oral 240 ml IV Total 1150.0 ml 150 ml Output Urine Total 1300 ml 2000 ml # Voids 1 3 Laboratory Tests 10/02/16 04:55: White Blood Count 10.8, Red Blood Count 4.12L, Hemoglobin 13.2L, Hematocrit 39.4L, Mean Corpuscular Volume 96, Mean Corpuscular Hemoglobin 32.1H, Mean Corpuscular Hemoglobin Concent 33.6, Red Cell Distribution Width 12.2, Platelet Count 220, Mean Platelet Volume 7.2, Neutrophils (%) (Auto) 69.5, Lymphocytes (% ) (Auto) 18.2L, Monocytes (%) (Auto) 9.3, Eosinophils (%) (Auto) 2.1, Basophils (%) (Auto) 1.0, Sodium Level 145, Potassium Level 3.6, Chloride Level 106, Carbon Dioxide Level 27, Anion Gap 12, Blood Urea Nitrogen 11, Creatinine 0.8, Estimat Glomerular Filtration Rate , Glucose Level 115H, Lactic Acid Level 1.10 , Calcium Level 7.9L, Magnesium Level 1.6L Height (Feet): 5 Height (Inches): 9.00 Weight (Pounds): 150 Objective CV RR Lungs increased EXP Abd SNT BS + E No CCE Confused. BRENNA STEWART October 02, 2016 09:16
[2016-10-02] MEDS: Vancomycin 1.5 GM/D5W 325 ML IVPB SCH ×2 (09:31)
[2016-10-02] MEDS ORDERED: Heparin 5000 units/ml inj SUBQ SCH (10:00)
[2016-10-02] MEDS: Norco 5mg/325mg tab ORAL PRN ×2 (10:30→22:08)
[2016-10-02 11:54] VITALS: BP 119/59
[2016-10-02] MEDS: cefTRIAXone 1 GM in D5W 50 ML IVPB SCH (12:01)
--- NOTE | 2016-10-02 14:07 | Pulmonology Progress Note ---
Assessment/Plan Assessment/Plan IMPRESSION: 1. Chronic obstructive pulmonary disease. 2. Shortness of breath. 3. Respiratory insufficiency. 4. Intermittent bronchospasm. 5. Intermittent wheezing. 6. Evidence of dementia with likely acute on chronic encephalopathy. 7. History of pacemaker per history. 8. History of chronic obstructive pulmonary disease per history. 9. Leukocytosis. 10. Pharyngitis. 11. Possible sepsis. PLAN care noted iv antibiotics respiratory care oxygen aspiration precautions close follow up and recommendations impression, plan, and exam edited and reviewed in detail care discussed with RN Subjective Allergies: Coded Allergies: No Known Allergies (Unverified , 09/29/16) Subjective overall more comfortable no distress Objective Last 24 Hour Vital Signs Date Time Temp Pulse Resp B/P Pulse Ox O2 Delivery O2 Flow Rate FiO2 10/02/16 12:00 65 10/02/16 11:54 97.0 60 20 119/59 95 Nasal Cannula 2.0 10/02/16 08:10 98 Room Air 21 10/02/16 08:10 Room Air 21 10/02/16 08:10 70 20 Room Air 21 10/02/16 08:00 60 10/02/16 07:58 97.5 60 20 115/58 95 Nasal Cannula 2.0 10/02/16 04:00 97.9 62 18 142/80 96 10/02/16 04:00 64 10/02/16 00:00 98.1 60 19 147/77 97 10/02/16 00:00 62 10/01/16 20:00 80 10/01/16 19:30 Room Air 21 10/01/16 19:30 98 Room Air 21 10/01/16 19:30 72 20 Room Air 21 10/01/16 16:05 97.0 67 22 149/73 96 Nasal Cannula 2.0 10/01/16 16:00 60 Intake and Output 10/01/16 10/02/16 19:00 07:00 Intake Total 1390.0 ml 150 ml Output Total 1300 ml 2000 ml Balance 90.0 ml -1850 ml Intake Oral 240 ml IV Total 1150.0 ml 150 ml Output Urine Total 1300 ml 2000 ml # Voids 1 3 Objective GENERAL: A well-developed male, in no significant distress, no congestion noted HEENT: Fairly negative. Extraocular movements are grossly intact NECK: Supple. No adenopathy. LUNGS: With reduced rhonchi. Moderate breath sounds. CARDIOVASCULAR: S1 and S2. Regular rate and rhythm without murmurs, rubs, or gallops. ABDOMEN: Soft. Nontender. No distention. EXTREMITIES: No cyanosis or clubbing. No significant edema. NEUROLOGICAL: Grossly nonfocal. Weak overall. Microbiology Date/Time Source Procedure Growth Status 09/30/16 13:20 Blood Blood Culture - Preliminary Staphylococcus Sp Coag Neg Resulted 09/30/16 13:20 Blood Blood Culture - Preliminary Staphylococcus Sp Coag Neg Resulted 09/30/16 11:45 Throat Throat Culture - Final NO BETA STREP ISOLATED. Complete Laboratory Tests 10/02/16 04:55: White Blood Count 10.8, Red Blood Count 4.12L, Hemoglobin 13.2L, Hematocrit 39.4L, Mean Corpuscular Volume 96, Mean Corpuscular Hemoglobin 32.1H, Mean Corpuscular Hemoglobin Concent 33.6, Red Cell Distribution Width 12.2, Platelet Count 220, Mean Platelet Volume 7.2, Neutrophils (%) (Auto) 69.5, Lymphocytes (% ) (Auto) 18.2L, Monocytes (%) (Auto) 9.3, Eosinophils (%) (Auto) 2.1, Basophils (%) (Auto) 1.0, Sodium Level 145, Potassium Level 3.6, Chloride Level 106, Carbon Dioxide Level 27, Anion Gap 12, Blood Urea Nitrogen 11, Creatinine 0.8, Estimat Glomerular Filtration Rate , Glucose Level 115H, Lactic Acid Level 1.10 , Calcium Level 7.9L, Magnesium Level 1.6L Current Medications Medications (Trade) Dose Ordered Sig/Indira Route PRN Reason Start Time Stop Time Status Last Admin Dose Admin Acetaminophen (Tylenol) 500 mg Q6H PRN ORAL Mild Pain/Temp > 100.5 09/29/16 19:00 10/29/16 18:59 Acetaminophen/ Hydrocodone Bitart ([place] 5/325) 1 tab Q6H PRN ORAL Pain 4 - 10 09/29/16 19:00 10/06/16 18:59 10/02/16 10:30 Ceftriaxone Sodium/Dextrose (Rocephin/D5W) 50 ml @ 100 mls/hr Q24H IVPB 09/30/16 13:00 10/07/16 12:59 10/02/16 12:01 Dextrose (Dextrose 50%) STAT PRN IV Hypoglycemia 09/29/16 19:00 10/29/16 18:59 Finasteride (Proscar) 5 mg DAILY ORAL 10/02/16 09:00 11/01/16 08:59 10/02/16 08:27 Heparin Sodium (Porcine) (Heparin 5000 units/ml) 5,000 units EVERY 12 HOURS SUBQ 10/02/16 10:00 11/01/16 09:59 10/02/16 09:32 Ipratropium [place] 500 mcg 500 mcg Q6H PRN HHN Shortness of Breath 09/29/16 19:45 10/04/16 19:44 10/01/16 00:00 Metronidazole 100 ml @ 100 mls/hr Q8HR IVPB 09/30/16 14:00 10/07/16 13:59 10/02/16 13:03 Olanzapine (ZyPREXA) 10 mg DAILY ORAL 09/30/16 09:00 10/30/16 08:59 10/02/16 08:27 Ondansetron HCl (Zofran) 4 mg Q6H PRN IVP Nausea & Vomiting 09/29/16 19:00 10/29/16 18:59 09/29/16 20:59 Pantoprazole 40 mg 40 mg DAILY ORAL 09/30/16 09:00 10/30/16 08:59 10/02/16 08:27 Polyethylene Glycol (Miralax) 17 gm DAILYPRN PRN ORAL Constipation 09/29/16 19:00 10/29/16 18:59 10/01/16 12:24 Sodium (0.45%NS w/KCl 20mEq 1000ml) 1,000 ml @ 75 mls/hr [id number] IV 09/29/16 20:30 10/29/16 20:29 10/01/16 17:17 Tamsulosin HCl (Flomax) 0.4 mg BEDTIME ORAL 10/01/16 22:00 10/31/16 21:59 10/01/16 22:00 Vancomycin HCl (Vanco rx to dose) 1 ea DAILY PRN MISC Per rx protocol 10/01/16 08:45 10/31/16 08:44 Vancomycin HCl/ Dextrose (Vancomycin/D5W) 325 ml @ 162.5 mls/ hr Q24H IVPB 10/01/16 10:30 10/06/16 10:29 10/02/16 09:31 Zolpidem Tartrate 5 mg 5 mg HSPRN PRN ORAL Insomnia 10/01/16 09:15 10/31/16 09:14 CLARENCE GUILLERMO October 02, 2016 14:07
--- NOTE | 2016-10-02 14:21 | Consultation ---
DATE OF CONSULTATION: 10/01/2016 CONSULTING PHYSICIAN: Dylan Sanders M.D. REFERRING PHYSICIAN: Chato Aggarwal M.D. REASON FOR CONSULTATION: Evaluation of decreased urinary retention, and history of difficult catheterization. HISTORY OF PRESENT ILLNESS: This is an 80-year-old male, he was admitted to the hospital because of neck pain. He also has confusion. He has a history of BPH. He has difficulty voiding and was noted to have a high residual urine and the nursing staff apparently was having some difficulty placing a Kinney catheter. I did speak with them and eventually we were able to pass a 14-[place] Kinney with 600 mL of residual urine. Urology evaluation is requested. The patient is somewhat confused. Most of the history was obtained from the chart. PAST MEDICAL HISTORY: Significant for history of COPD, history of mild dementia, and BPH. Other history is unknown. PAST SURGICAL HISTORY: He has had pacemaker. Other surgeries are unknown. MEDICATIONS: Current medications here in the hospital, the patient is on Flagyl, Rocephin, Zyprexa, Protonix, Zofran, dextrose, and Tylenol. ALLERGIES: No known drug allergies. SOCIAL HISTORY: Smoking history is unknown. REVIEW OF SYSTEMS: History unable to obtain. PHYSICAL EXAMINATION: GENERAL: This is an elderly male, in no acute distress. VITAL SIGNS: Temperature is 97.0 degrees, blood pressure is 149/73, pulse 67, and respirations 22. HEENT: Normocephalic. NECK: Supple. ABDOMEN: Soft. BACK: No CVA tenderness. GENITOURINARY: Reveals Kinney catheter in place. Urine is yellow. RECTAL: Exam reveals a very firm prostate and large over 60 grams. EXTREMITIES: No clubbing or cyanosis. LABORATORY DATA: His white count is 12.8, hemoglobin 13.1, and platelets are 248,000. BUN is 50 and creatinine 0.8. His admit the UA showed 2-4 RBCs, 1+ protein. DIAGNOSTIC IMAGING STUDIES: There is no renal imaging noted. The patient had a chest x-ray, which was reviewed. IMPRESSION: 1. Urinary retention with history of difficult catheterization. 2. Benign prostatic hypertrophy. 3. Probable neurogenic bladder. 4. Microhematuria. 5. Proteinuria. PLAN AND DISCUSSION: Again as noted above the patient has urinary retention. Kinney has been placed, draining well. At this time, I recommended adding Flomax 0.4 mg nightly and finasteride 5 mg daily. The patient will be monitored with a voiding trial in the next few days once he is more medically stabilized. We will also consider obtaining a renal imaging study and cystoscopy in the future. I will follow the patient. Any other recommendations will be forthcoming. Thank you, Dr. Aggarwal, for asking me to see this patient in consultation. Dylan Sanders M.D. DR: Claudy JOB#: [id number] CC:
[2016-10-02] MEDS: 1/2NS w/KCl 20mEq 1000ml 1,000 ML IV SCH ×2 (15:07→20:46)
[2016-10-02 15:36] VITALS: BP 104/55
[2016-10-02 19:44] VITALS: BP 121/99
[2016-10-02] MEDS: Heparin 5000 units/ml inj SUBQ SCH (20:59)
[2016-10-02] MEDS ORDERED: Zolpidem 5mg tab ORAL PRN (21:00)
[2016-10-02] MEDS ORDERED: Miralax 17gm pkt ORAL PRN (21:00)
[2016-10-02] MEDS ORDERED: Ipratropium 0.02% Inh Soln 2.5ml UD HHN PRN (21:00)
[2016-10-02] MEDS ORDERED: Acetaminophen 500mg (ES) tab ORAL PRN (21:00)
[2016-10-02] MEDS ORDERED: Tamsulosin 0.4mg cap ORAL SCH (21:00)
--- NOTE | 2016-10-02 23:12 | Cardiology Progress Note ---
Assessment/Plan Assessment/Plan pacemaker interrogation is pending will follow Subjective Subjective arousable, denies chest pain Objective Last 24 Hour Vital Signs Date Time Temp Pulse Resp B/P Pulse Ox O2 Delivery O2 Flow Rate FiO2 10/02/16 19:54 98 Room Air 21 10/02/16 19:54 Room Air 21 10/02/16 19:53 73 20 Room Air 21 10/02/16 19:44 98.5 84 20 121/99 93 Nasal Cannula 2.0 10/02/16 15:36 97.3 60 20 104/55 96 Nasal Cannula 2.0 10/02/16 12:00 65 10/02/16 11:54 97.0 60 20 119/59 95 Nasal Cannula 2.0 10/02/16 08:10 98 Room Air 21 10/02/16 08:10 Room Air 21 10/02/16 08:10 70 20 Room Air 21 10/02/16 08:00 60 10/02/16 07:58 97.5 60 20 115/58 95 Nasal Cannula 2.0 10/02/16 04:00 97.9 62 18 142/80 96 10/02/16 04:00 64 10/02/16 00:00 98.1 60 19 147/77 97 10/02/16 00:00 62 General Appearance: lethargic EENT: PERRL/EOMI Neck: no JVD Rhythm: other - paced rhythm Cardiovascular: normal rate Respiratory/Chest: crackles/rales, expiratory wheezing Abdomen: soft Extremities: no swelling Intake and Output 10/01/16 10/02/16 19:00 07:00 Intake Total 1390.0 ml 150 ml Output Total 1300 ml 2000 ml Balance 90.0 ml -1850 ml Intake Oral 240 ml IV Total 1150.0 ml 150 ml Output Urine Total 1300 ml 2000 ml # Voids 1 3 Laboratory Tests Test 10/02/16 04:55 White Blood Count 10.8 K/UL (4.8-10.8) Red Blood Count 4.12 M/UL (4.70-6.10) L Hemoglobin 13.2 G/DL (14.2-18.0) L Hematocrit 39.4 % (42.0-52.0) L Mean Corpuscular Volume 96 FL (80-99) Mean Corpuscular Hemoglobin 32.1 PG (27.0-31.0) H Mean Corpuscular Hemoglobin Concent 33.6 G/DL (32.0-36.0) Red Cell Distribution Width 12.2 % (11.6-14.8) Platelet Count 220 K/UL (150-450) Mean Platelet Volume 7.2 FL (6.5-10.1) Neutrophils (%) (Auto) 69.5 % (45.0-75.0) Lymphocytes (%) (Auto) 18.2 % (20.0-45.0) L Monocytes (%) (Auto) 9.3 % (1.0-10.0) Eosinophils (%) (Auto) 2.1 % (0.0-3.0) Basophils (%) (Auto) 1.0 % (0.0-2.0) Sodium Level 145 mEQ/L (135-145) Potassium Level 3.6 mEQ/L (3.4-4.9) Chloride Level 106 mEQ/L (98-107) Carbon Dioxide Level 27 mEQ/L (20-30) Anion Gap 12 (5-15) Blood Urea Nitrogen 11 mg/dL (7-23) Creatinine 0.8 mg/dL (0.7-1.2) Estimat Glomerular Filtration Rate mL/min (>60) Glucose Level 115 mg/dL (74-106) H Lactic Acid Level 1.10 mmol/L (0.66-2.22) Calcium Level 7.9 mg/dL (8.6-10.2) L Magnesium Level 1.6 mg/dL (1.7-2.5) L Microbiology Date/Time Source Procedure Growth Status 09/30/16 13:20 Blood Blood Culture - Preliminary Staphylococcus Sp Coag Neg Resulted 09/30/16 13:20 Blood Blood Culture - Preliminary Staphylococcus Sp Coag Neg Resulted 09/30/16 11:45 Throat Throat Culture - Final NO BETA STREP ISOLATED. Complete JANET MYERS October 02, 2016 23:11
[2016-10-03] VITALS: BP 133/78
[2016-10-03 04:00] VITALS: BP 141/89
[2016-10-03] MEDS: metroNIDAZOLE 500mg 100 ML IVPB SCH (05:49)
--- NOTE | 2016-10-03 08:05 | Pulmonology Progress Note ---
Assessment/Plan Assessment/Plan IMPRESSION: 1. Chronic obstructive pulmonary disease. 2. Shortness of breath. 3. Respiratory insufficiency. 4. Intermittent bronchospasm. 5. Intermittent wheezing. 6. Evidence of dementia with likely acute on chronic encephalopathy. 7. History of pacemaker per history. 8. History of chronic obstructive pulmonary disease per history. 9. Leukocytosis. 10. Pharyngitis. 11. Possible sepsis. PLAN care noted iv antibiotics- taper to po respiratory care oxygen aspiration precautions monitor for congestion close follow up and recommendations impression, plan, and exam edited and reviewed in detail care discussed with RN Subjective Allergies: Coded Allergies: No Known Allergies (Unverified , 09/29/16) Subjective overall more comfortable no distress somewhat confused Objective Last 24 Hour Vital Signs Date Time Temp Pulse Resp B/P Pulse Ox O2 Delivery O2 Flow Rate FiO2 10/03/16 07:13 Nasal Cannula 2.0 10/03/16 07:12 98 Nasal Cannula 2.0 10/03/16 07:12 85 18 Nasal Cannula 2.0 21 10/03/16 04:00 98.8 89 20 141/89 97 Room Air 10/03/16 00:00 97.7 63 20 133/78 97 Room Air 10/02/16 19:54 98 Room Air 21 10/02/16 19:54 Room Air 21 10/02/16 19:53 73 20 Room Air 21 10/02/16 19:44 98.5 84 20 121/99 93 Nasal Cannula 2.0 10/02/16 15:36 97.3 60 20 104/55 96 Nasal Cannula 2.0 10/02/16 12:00 65 10/02/16 11:54 97.0 60 20 119/59 95 Nasal Cannula 2.0 10/02/16 08:10 98 Room Air 21 10/02/16 08:10 Room Air 21 10/02/16 08:10 70 20 Room Air 21 Intake and Output 10/02/16 10/03/16 19:00 07:00 Intake Total 1690.0 ml 565 ml Output Total 600 ml 500 ml Balance 1090.0 ml 65 ml Intake Oral 240 ml 240 ml IV Total 1450.0 ml 325 ml Output Urine Total 600 ml 500 ml Objective GENERAL: A well-developed male, in no significant distress, no significant congestion noted HEENT: Fairly negative. Extraocular movements are grossly intact NECK: Supple. No adenopathy. LUNGS: With minimal rhonchi. Moderate breath sounds. CARDIOVASCULAR: S1 and S2. Regular rate and rhythm without murmurs, rubs, or gallops. ABDOMEN: Soft. Nontender. No distention. EXTREMITIES: No cyanosis or clubbing. No significant edema. NEUROLOGICAL: Grossly nonfocal. Weak overall. Microbiology Date/Time Source Procedure Growth Status 10/02/16 04:55 Blood Blood Culture - Preliminary NO GROWTH AFTER 24 HOURS Resulted 09/30/16 13:20 Blood Blood Culture - Final Staphylococcus Sp Coag Neg Complete 09/30/16 13:20 Blood Blood Culture - Final Staphylococcus Sp Coag Neg Complete 09/30/16 11:45 Throat Throat Culture - Final NO BETA STREP ISOLATED. Complete Current Medications Medications (Trade) Dose Ordered Sig/Indira Route PRN Reason Start Time Stop Time Status Last Admin Dose Admin Acetaminophen (Tylenol) 500 mg Q6H PRN ORAL Mild Pain/Temp > 100.5 10/02/16 21:00 11/01/16 20:59 Acetaminophen/ Hydrocodone Bitart ([place] 5/325) 1 tab Q6H PRN ORAL Pain 4 - 10 10/02/16 21:00 10/09/16 20:59 10/02/16 22:08 Ceftriaxone Sodium 1 gm/ Dextrose 50 ml @ 100 mls/hr Q24H IVPB 10/03/16 13:00 10/10/16 12:59 Dextrose (Dextrose 50%) STAT PRN IV Hypoglycemia 10/02/16 21:00 11/01/16 20:59 Finasteride (Proscar) 5 mg DAILY ORAL 10/03/16 09:00 11/02/16 08:59 Heparin Sodium (Porcine) (Heparin 5000 units/ml) 5,000 units EVERY 12 HOURS SUBQ 10/02/16 21:00 11/01/16 20:59 10/02/16 20:59 Ipratropium [place] (Atrovent) 500 mcg Q6H PRN HHN Shortness of Breath 10/02/16 21:00 10/07/16 20:59 Metronidazole 100 ml @ 100 mls/hr Q8HR IVPB 10/02/16 22:00 10/09/16 21:59 10/03/16 05:49 Olanzapine (ZyPREXA Zydis) 10 mg DAILY ORAL 10/03/16 09:00 11/02/16 08:59 Ondansetron HCl (Zofran) 4 mg Q6H PRN IVP Nausea & Vomiting 10/02/16 21:00 11/01/16 20:59 Pantoprazole (Protonix) 40 mg DAILY ORAL 10/03/16 09:00 11/02/16 08:59 Polyethylene Glycol (Miralax) 17 gm DAILYPRN PRN ORAL Constipation 10/02/16 21:00 11/01/16 20:59 Sodium 1,000 ml @ 75 mls/hr [id number] IV 10/02/16 21:00 11/01/16 20:59 10/02/16 20:46 Tamsulosin HCl (Flomax) 0.4 mg BEDTIME ORAL 10/02/16 21:00 11/01/16 20:59 10/02/16 20:55 Vancomycin HCl (Vanco rx to dose) 1 ea DAILY PRN MISC Per rx protocol 10/02/16 21:00 11/01/16 20:59 Vancomycin HCl/ Dextrose (Vancomycin/D5W) 325 ml @ 162.5 mls/ hr Q24H IVPB 10/03/16 10:30 10/08/16 10:29 Zolpidem Tartrate (Ambien) 5 mg HSPRN PRN ORAL Insomnia 10/02/16 21:00 11/01/16 20:59 CLARENCE GUILLERMO October 03, 2016 08:05
[2016-10-03] MEDS ORDERED: ZyPREXA Zydis 10mg tab ORAL SCH (09:00)
--- NOTE | 2016-10-03 09:21 | Urology Progress Note ---
Assessment/Plan Assessment/Plan urinary retention BPH probable neurogenic bladder microhematuria proteinuria panda indwelling flomax and proscar added voiding trial later consider renal imaging cysto later Subjective Allergies: Coded Allergies: No Known Allergies (Unverified , 09/29/16) Subjective feels fair Objective Last 24 Hour Vital Signs Date Time Temp Pulse Resp B/P Pulse Ox O2 Delivery O2 Flow Rate FiO2 10/03/16 07:13 Nasal Cannula 2.0 10/03/16 07:12 98 Nasal Cannula 2.0 10/03/16 07:12 85 18 Nasal Cannula 2.0 21 10/03/16 04:00 98.8 89 20 141/89 97 Room Air 10/03/16 00:00 97.7 63 20 133/78 97 Room Air 10/02/16 19:54 98 Room Air 21 10/02/16 19:54 Room Air 21 10/02/16 19:53 73 20 Room Air 21 10/02/16 19:44 98.5 84 20 121/99 93 Nasal Cannula 2.0 10/02/16 15:36 97.3 60 20 104/55 96 Nasal Cannula 2.0 10/02/16 12:00 65 10/02/16 11:54 97.0 60 20 119/59 95 Nasal Cannula 2.0 Intake and Output 10/02/16 10/03/16 19:00 07:00 Intake Total 1690.0 ml 565 ml Output Total 600 ml 500 ml Balance 1090.0 ml 65 ml Intake Oral 240 ml 240 ml IV Total 1450.0 ml 325 ml Output Urine Total 600 ml 500 ml Microbiology Date/Time Source Procedure Growth Status 10/02/16 04:55 Blood Blood Culture - Preliminary NO GROWTH AFTER 24 HOURS Resulted 09/30/16 11:45 Throat Throat Culture - Final NO BETA STREP ISOLATED. Complete 09/29/16 13:20 Rectum VRE Culture - Final NO VANCOMYCIN RESISTANT ENTEROCOCCUS ... Complete Current Medications Medications (Trade) Dose Ordered Sig/Indira Route PRN Reason Start Time Stop Time Status Last Admin Dose Admin Acetaminophen (Tylenol) 500 mg Q6H PRN ORAL Mild Pain/Temp > 100.5 10/02/16 21:00 11/01/16 20:59 Acetaminophen/ Hydrocodone Bitart ([place] 5/325) 1 tab Q6H PRN ORAL Pain 4 - 10 10/02/16 21:00 10/09/16 20:59 10/02/16 22:08 Ceftriaxone Sodium 1 gm/ Dextrose 50 ml @ 100 mls/hr Q24H IVPB 10/03/16 13:00 10/10/16 12:59 Dextrose (Dextrose 50%) STAT PRN IV Hypoglycemia 10/02/16 21:00 11/01/16 20:59 Finasteride (Proscar) 5 mg DAILY ORAL 10/03/16 09:00 11/02/16 08:59 Heparin Sodium (Porcine) (Heparin 5000 units/ml) 5,000 units EVERY 12 HOURS SUBQ 10/02/16 21:00 11/01/16 20:59 10/02/16 20:59 Ipratropium [place] (Atrovent) 500 mcg Q6H PRN HHN Shortness of Breath 10/02/16 21:00 10/07/16 20:59 Metronidazole 100 ml @ 100 mls/hr Q8HR IVPB 10/02/16 22:00 10/09/16 21:59 10/03/16 05:49 Olanzapine (ZyPREXA Zydis) 10 mg DAILY ORAL 10/03/16 09:00 11/02/16 08:59 Ondansetron HCl (Zofran) 4 mg Q6H PRN IVP Nausea & Vomiting 10/02/16 21:00 11/01/16 20:59 Pantoprazole (Protonix) 40 mg DAILY ORAL 10/03/16 09:00 11/02/16 08:59 Polyethylene Glycol (Miralax) 17 gm DAILYPRN PRN ORAL Constipation 10/02/16 21:00 11/01/16 20:59 Sodium 1,000 ml @ 75 mls/hr [id number] IV 10/02/16 21:00 11/01/16 20:59 10/02/16 20:46 Tamsulosin HCl (Flomax) 0.4 mg BEDTIME ORAL 10/02/16 21:00 11/01/16 20:59 10/02/16 20:55 Vancomycin HCl (Vanco rx to dose) 1 ea DAILY PRN MISC Per rx protocol 10/02/16 21:00 11/01/16 20:59 Vancomycin HCl/ Dextrose (Vancomycin/D5W) 325 ml @ 162.5 mls/ hr Q24H IVPB 10/03/16 10:30 10/08/16 10:29 Zolpidem Tartrate (Ambien) 5 mg HSPRN PRN ORAL Insomnia 10/02/16 21:00 11/01/16 20:59 Height (Feet): 5 Height (Inches): 9.00 Weight (Pounds): 150 Objective exam stable, urine is grossly clear REGINALD ARREAGA October 03, 2016 09:21
[2016-10-03] MEDS: 1/2NS w/KCl 20mEq 1000ml 1,000 ML IV SCH (09:58)
[2016-10-03] MEDS: Heparin 5000 units/ml inj SUBQ SCH (10:09)
[2016-10-03] MEDS ORDERED: Vancomycin 1.5 GM in D5W 325 ML IVPB SCH (10:30)
[2016-10-03 11:47] VITALS: BP 139/71
--- NOTE | 2016-10-03 12:45 | General Progress Note ---
Assessment/Plan Assessment/Plan COPD Exacerbation - See orders. SW notes reviewed. Needs short-term SNF. BC Staph Epi. On IV Abx per ID Subjective Allergies: Coded Allergies: No Known Allergies (Unverified , 09/29/16) Subjective Still c/o SOB, LBP, Dysuria, sore throat.s/p Traumatic Kinney cath insertion - see notes. Objective Last 24 Hour Vital Signs Date Time Temp Pulse Resp B/P Pulse Ox O2 Delivery O2 Flow Rate FiO2 10/03/16 11:47 97.7 64 24 139/71 95 Nasal Cannula 2.0 10/03/16 07:13 Nasal Cannula 2.0 10/03/16 07:12 98 Nasal Cannula 2.0 10/03/16 07:12 85 18 Nasal Cannula 2.0 21 10/03/16 04:00 98.8 89 20 141/89 97 Room Air 10/03/16 00:00 97.7 63 20 133/78 97 Room Air 10/02/16 19:54 98 Room Air 21 10/02/16 19:54 Room Air 21 10/02/16 19:53 73 20 Room Air 21 10/02/16 19:44 98.5 84 20 121/99 93 Nasal Cannula 2.0 10/02/16 15:36 97.3 60 20 104/55 96 Nasal Cannula 2.0 Intake and Output 10/02/16 10/03/16 19:00 07:00 Intake Total 1690.0 ml 565 ml Output Total 600 ml 500 ml Balance 1090.0 ml 65 ml Intake Oral 240 ml 240 ml IV Total 1450.0 ml 325 ml Output Urine Total 600 ml 500 ml Laboratory Tests 10/03/16 09:35: Vancomycin Level Trough 7.6 Height (Feet): 5 Height (Inches): 9.00 Weight (Pounds): 150 Objective CV RR Lungs increased EXP Abd SNT BS + E No CCE Confused. BRENNA STEWART October 03, 2016 12:45
[2016-10-03] MEDS ORDERED: cefTRIAXone 1 GM in D5W 50 ML IVPB SCH (13:00)
[2016-10-03] MEDS ORDERED: ACETAMINOPHEN325 M1 ORAL (13:49)
[2016-10-03] MEDS ORDERED: NORCO 5-325 TA1 EAC1 ORAL (13:50)
[2016-10-03] MEDS ORDERED: HEPARIN SO5000 UNIT2 SUBQ (13:50)
[2016-10-03] MEDS ORDERED: PROSCAR5 MG ORAL (13:50)
[2016-10-03] MEDS ORDERED: PROTONIX40 MG ORAL (13:51)
[2016-10-03] MEDS ORDERED: IPRATROPIU0.2 MG/1 M HHN (13:51)
[2016-10-03] MEDS ORDERED: ZOFRAN4 M3 ORAL (13:51)
[2016-10-03] MEDS ORDERED: ZYPREXA ZYDIS5 MG ORAL (13:51)
[2016-10-03] MEDS ORDERED: TAMSULOSIN HCL0.4 MG ORAL (13:54)
[2016-10-03] MEDS ORDERED: MIRALAX17 G2 ORAL (13:54)
[2016-10-03] MEDS ORDERED: AMBIEN5 MG ORAL (13:54)
[2016-10-03] MEDS ORDERED: VANCOMYCIN750 MG/250 IV (13:55)
--- NOTE | 2016-10-03 14:35 | Infectious Diseases Prog Note ---
Assessment/Plan Assessment/Plan ASSESSMENT AND PLAN: 1. 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 sbe, ? pacemaker infection, contamination less likely with 4/4 bottles, ? skin source - plan on 14 day abx treatment course with vancomycin and subsequent blood cultures off abx - if blood cultures + off abx then needs TERESO and possible pacemaker removal - d/w Dr. Murphy - watch labs 2. The patient has a history of chronic obstructive pulmonary disease and nicotine dependency. 3. The patient is anemic. 4. Cardiac disease. 5. Pacemaker. 6. Hypertension. 7. Blood pressure control per primary. 8. Chronic obstructive pulmonary disease treatment per primary. 9. History of cancer, I am not clear what type it is. 10. Allergies are negative. 11. Social history is positive for smoking. 12. MAR was noted. 13. Case discussed with RN. 14. Family history is noncontributory. 15. Case discussed with primary consultants. 16. No known allergies. 17. Notes were reviewed. 18. Case discussed with the patient. Subjective Constitutional: Reports: fatigue, other - + generalized weakness, Denies: fever HEENT: Reports: congestion Respiratory: Denies: shortness of breath Cardiovascular: Denies: chest pain Gastrointestinal/Abdominal: Denies: diarrhea, nausea, vomiting Genitourinary: Denies: dysuria, frequency, hematuria Neurologic: Denies: headache Psychiatric: Denies: depression Skin: Denies: rash Hematologic: Denies: bleeding Musculoskeletal: Denies: pain Allergies: Coded Allergies: No Known Allergies (Unverified , 09/29/16) Objective Vital Signs Last 24 Hour Vital Signs Date Time Temp Pulse Resp B/P Pulse Ox O2 Delivery O2 Flow Rate FiO2 10/03/16 11:47 97.7 64 24 139/71 95 Nasal Cannula 2.0 10/03/16 07:13 Nasal Cannula 2.0 10/03/16 07:12 98 Nasal Cannula 2.0 10/03/16 07:12 85 18 Nasal Cannula 2.0 21 10/03/16 04:00 98.8 89 20 141/89 97 Room Air 10/03/16 00:00 97.7 63 20 133/78 97 Room Air 10/02/16 19:54 98 Room Air 21 10/02/16 19:54 Room Air 21 10/02/16 19:53 73 20 Room Air 21 10/02/16 19:44 98.5 84 20 121/99 93 Nasal Cannula 2.0 10/02/16 15:36 97.3 60 20 104/55 96 Nasal Cannula 2.0 Height (Feet): 5 Height (Inches): 9.00 Weight (Pounds): 150 General Appearance: no acute distress HEENT: normocephalic, atraumatic, anicteric, mucous membranes moist Respiratory/Chest: lungs clear, normal breath sounds, no respiratory distress, no accessory muscle use Cardiovascular: normal rate, regular rhythm, regularly irregular, no gallop/ murmur Abdomen: normal bowel sounds, soft, non tender, no organomegaly, non distended Genitourinary: other - no panda Extremities: no cyanosis Skin: no rash Neurologic/Psychiatric: 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 Complete 09/29/16 13:20 Rectum VRE Culture - Final NO VANCOMYCIN RESISTANT ENTEROCOCCUS ... Complete Microbiology Date/Time Source Procedure Growth Status 10/02/16 04:55 Blood Blood Culture - Preliminary NO GROWTH AFTER 24 HOURS Resulted Labs Test 10/01/16 07:20 10/02/16 04:55 10/03/16 09:35 White Blood Count 12.8 K/UL (4.8-10.8) 10.8 K/UL (4.8-10.8) Red Blood Count 4.14 M/UL (4.70-6.10) 4.12 M/UL (4.70-6.10) Hemoglobin 13.1 G/DL (14.2-18.0) 13.2 G/DL (14.2-18.0) Hematocrit 39.9 % (42.0-52.0) 39.4 % (42.0-52.0) Mean Corpuscular Volume 96 FL (80-99) 96 FL (80-99) Mean Corpuscular Hemoglobin 31.8 PG (27.0-31.0) 32.1 PG (27.0-31.0) Mean Corpuscular Hemoglobin Concent 32.9 G/DL (32.0-36.0) 33.6 G/DL (32.0-36.0) Red Cell Distribution Width 12.4 % (11.6-14.8) 12.2 % (11.6-14.8) Platelet Count 248 K/UL (150-450) 220 K/UL (150-450) Mean Platelet Volume 7.1 FL (6.5-10.1) 7.2 FL (6.5-10.1) Neutrophils (%) (Auto) 73.7 % (45.0-75.0) 69.5 % (45.0-75.0) Lymphocytes (%) (Auto) 14.5 % (20.0-45.0) 18.2 % (20.0-45.0) Monocytes (%) (Auto) 10.2 % (1.0-10.0) 9.3 % (1.0-10.0) Eosinophils (%) (Auto) 0.8 % (0.0-3.0) 2.1 % (0.0-3.0) Basophils (%) (Auto) 0.8 % (0.0-2.0) 1.0 % (0.0-2.0) Sodium Level 144 mEQ/L (135-145) 145 mEQ/L (135-145) Potassium Level 4.1 mEQ/L (3.4-4.9) 3.6 mEQ/L (3.4-4.9) Chloride Level 106 mEQ/L (98-107) 106 mEQ/L (98-107) Carbon Dioxide Level 25 mEQ/L (20-30) 27 mEQ/L (20-30) Anion Gap 13 (5-15) 12 (5-15) Blood Urea Nitrogen 15 mg/dL (7-23) 11 mg/dL (7-23) Creatinine 0.8 mg/dL (0.7-1.2) 0.8 mg/dL (0.7-1.2) Estimat Glomerular Filtration Rate mL/min (>60) mL/min (>60) Glucose Level 96 mg/dL (74-106) 115 mg/dL (74-106) Calcium Level 8.2 mg/dL (8.6-10.2) 7.9 mg/dL (8.6-10.2) Lactic Acid Level 1.10 mmol/L (0.66-2.22) Magnesium Level 1.6 mg/dL (1.7-2.5) Vancomycin Level Trough 7.6 ug/mL (5.0-12.0) Laboratory Tests Test 10/03/16 09:35 Vancomycin Level Trough 7.6 ug/mL (5.0-12.0) Current Medications Medications (Trade) Dose Ordered Sig/Indira Route PRN Reason Start Time Stop Time Status Last Admin Dose Admin Acetaminophen (Tylenol) 500 mg Q6H PRN ORAL Mild Pain/Temp > 100.5 10/02/16 21:00 11/01/16 20:59 Acetaminophen/ Hydrocodone Bitart ([place] 5/325) 1 tab Q6H PRN ORAL Pain 4 - 10 10/02/16 21:00 10/09/16 20:59 10/02/16 22:08 Ceftriaxone Sodium 1 gm/ Dextrose 50 ml @ 100 mls/hr Q24H IVPB 10/03/16 13:00 10/10/16 12:59 Dextrose (Dextrose 50%) STAT PRN IV Hypoglycemia 10/02/16 21:00 11/01/16 20:59 Finasteride (Proscar) 5 mg DAILY ORAL 10/03/16 09:00 11/02/16 08:59 10/03/16 10:08 Heparin Sodium (Porcine) (Heparin 5000 units/ml) 5,000 units EVERY 12 HOURS SUBQ 10/02/16 21:00 11/01/16 20:59 10/03/16 10:09 Ipratropium [place] (Atrovent) 500 mcg Q6H PRN HHN Shortness of Breath 10/02/16 21:00 10/07/16 20:59 Metronidazole 100 ml @ 100 mls/hr Q8HR IVPB 10/02/16 22:00 10/09/16 21:59 10/03/16 05:49 Olanzapine (ZyPREXA Zydis) 10 mg DAILY ORAL 10/03/16 09:00 11/02/16 08:59 10/03/16 10:07 Ondansetron HCl (Zofran) 4 mg Q6H PRN IVP Nausea & Vomiting 10/02/16 21:00 11/01/16 20:59 Pantoprazole (Protonix) 40 mg DAILY ORAL 10/03/16 09:00 11/02/16 08:59 10/03/16 10:08 Polyethylene Glycol (Miralax) 17 gm DAILYPRN PRN ORAL Constipation 10/02/16 21:00 11/01/16 20:59 Sodium 1,000 ml @ 75 mls/hr [id number] IV 10/02/16 21:00 11/01/16 20:59 10/02/16 20:46 Tamsulosin HCl (Flomax) 0.4 mg BEDTIME ORAL 10/02/16 21:00 11/01/16 20:59 10/02/16 20:55 Vancomycin HCl (Vanco rx to dose) 1 ea DAILY PRN MISC Per rx protocol 10/02/16 21:00 11/01/16 20:59 Vancomycin HCl/ Dextrose (Vancomycin/D5W) 275 ml @ 183.708 mls/hr Q12HR@0000,1200 IVPB 10/04/16 00:00 10/09/16 00:00 Vancomycin HCl/ Dextrose (Vancomycin/D5W) 325 ml @ 162.5 mls/ hr Q24H IVPB 10/03/16 10:30 10/03/16 23:59 10/03/16 11:14 Zolpidem Tartrate 5 mg 5 mg HSPRN PRN ORAL Insomnia 10/02/16 21:00 11/01/16 20:59 LEEROY SOTO October 03, 2016 14:35
[2016-10-03] MEDS: Norco 5mg/325mg tab ORAL PRN (14:53)
[2016-10-03 15:54] VITALS: BP 143/69
[2016-10-03] MEDS ORDERED: Tubing IV Secondary IV ONE (16:24)
[2016-10-03] MEDS ORDERED: NS 275ml ONE (16:24)
[2016-10-04] MEDS ORDERED: Vancomycin 750mg/D5W 275ml IVPB SCH ×2
--- NOTE | 2016-10-04 13:35 | Discharge Summary ---
Discharge Summary Hospital Course Date of Admission September 29, 2016 at 17:12 Date of Discharge October 03, 2016 at 16:25 Admitting Diagnosis Sepsis, GI Bleed, Neck Mass HPI Campbell Rojas is a 80 year old male who was admitted on September 29, 2016 at 17:12 for Sepsis,Gastrointestinal Bleed,Neck Mass Hospital Course [id number] Discharge Discharge Disposition Patient was discharged to SNF/Subacute Facility(03) Discharge Diagnoses: Edna Dodge NP October 04, 2016 13:35
--- NOTE | 2016-10-05 01:31 | Discharge Summary 2 SIG ---
DATE OF ADMISSION: 09/29/2016 DATE OF DISCHARGE: 10/03/2016 CONSULTANTS: 1. Cris Mayfield M.D. 2. Dylan Sanders M.D. 3. Adan Moore M.D. 4. Jocelyn Watters M.D. BRIEF HOSPITAL COURSE: The patient is an 80-year-old male, who came to emergency department. The patient presented to the ED complaining of several days of jaw and throat pain and has been unable to eat and claims to have fullness in the throat and neck. He was recently admitted to the hospital, which he does not remember the name and has also been vomiting. On evaluation at ED, a central femoral line was placed in order to do a blood draw and IV hydration. Labs showed elevated WBC. EKG showed normal sinus rhythm. CT of the neck done did not show any abscess or any other acute pathology. Chest x-ray showed no acute cardiopulmonary disease. Dr. Mayfield was consulted for antibiotic management. Blood culture also was performed showed gram-positive cocci. He was started on vancomycin, Rocephin and Flagyl. Dr. Watters was also consulted as the patient has history of AICD. Echocardiogram showed normal ejection fraction. EKG was ventricular pacing with unusual right upward axis. Dr. Moore was also consulted for shortness of breath. The patient was continued on his COPD. Dr. Sanders was consulted. The patient had difficulty voiding and was noted to have high residual urine. Initially, there was some difficulty placing Kinney catheter, however, was able to pass a 14-Chinese Kinney with 600 mL of residual urine. He was started on Flomax and finasteride and was advised cystoscopy and renal imaging in the future. Blood culture initially showed growth of coagulase negative Staph. A throat culture done was negative for streptococcus. He was given vancomycin. Repeat blood culture did not isolate any growth. He was advised to continue antibiotic for 14 days. He was eventually discharged to a long-term. FINAL DIAGNOSES: 1. Coagulase negative Staphylococcus bacteremia. 2. Acute chronic obstructive pulmonary disease exacerbation. 3. Pacemaker status. 4. Urinary retention. 5. Benign prostatic hypertrophy. 6. Probable neurogenic bladder. 7. Proteinuria. 8. Evidence of dementia with likely acute on chronic encephalopathy. 9. Pharyngitis. 10. Biventricular pacemaker status post interrogation. Chato Aggarwal M.D. I have been assigned to dictate discharge summary on this account and I was not involved in the patient's management. Edan Dodge N.P. DR: LEONEL JOB#: [id number] CC:
== END 2016-10-03 16:25 | DRG 871 ==
LOC: EDBD 10:51 → EMR 11:26 → EDBEDREQSVC 14:12 → EDBEDREQ 15:07 → 2E 17:12 → 4E 10-02 20:33
PROC: 06HM33Z Insertion of Infusion Device into Right Femoral Vein, Percutaneous Approach (ICD-10-PCS; principal; 2016-09-29)
DX: R78.81 Bacteremia (principal); G93.40 Encephalopathy, unspecified; N17.9 Acute kidney failure, unspecified; J44.1 Chronic obstructive pulmonary disease with (acute) exacerbation; F03.90 Unspecified dementia, unspecified severity, without behavioral disturbance, psychotic disturbance, mood disturbance, and anxiety; N31.9 Neuromuscular dysfunction of bladder, unspecified; J02.9 Acute pharyngitis, unspecified; Z95.0 Presence of cardiac pacemaker; N40.1 Benign prostatic hyperplasia with lower urinary tract symptoms; R33.8 Other retention of urine; R31.29 Other microscopic hematuria; R80.9 Proteinuria, unspecified; F17.200 Nicotine dependence, unspecified, uncomplicated; I48.91 Unspecified atrial fibrillation
CPT/HCPCS: 36415; 70491; 71010; 74000; 80048; 80053; 80202; 80300; 81003; 82550; 83605; 83735; 83880; 84484; 85007; 85025; 85610; 85730; 86850; 86900; 86901; 87040; 87070; 87081; 87181; 93005; 93306; 94640; 94664; 94760; J2405